=== PATIENT | female | born 1990 | race Caucasian/White ===

== ENCOUNTER 2016-05-05 18:23 | Emergency (ER) | payer BC, OTHER ==
[~2016-05-05] VITALS: Ht 167.6 cm; Wt 117.9 kg
[~2016-05-05 18:23] MED LIST: AMOXIL500 MG PO; ANAPROX DS550 MG PO; ANTIBIOTIC O500 U/GM TP; ATARAX,VISTARIL50 MG PO; ATARAX25 MG PO; AUGMENTIN 875 M1 TAB PO; CARVEDILOL3.125 MG PO; CELEBREX200 MG PO; CELEXA10 MG PO; CELEXA20 MG PO; CLARITIN10 MG PO; CLINDAMYCIN HC300 MG PO; CORDROL20 MG PO; DARVOCET N 1001 TAB PO; DELTASONE20 M1 PO; DIFLUCAN150 MG PO; DONNATAL1 TAB PO; Diabeta,Micron2.5 MG PO; EPIPEN 2-PAK1 MG/ML MR; FLUCONAZOLE100 MG PO; Fioricet 325 MG1 TAB PO; HYDROCHLOROTHIA25 M1 PO; HYDROCODONE BIT1 T11 PO; IBU-6600 MG PO; IBU-8800 MG PO; KEFLEX500 MG PO; KETOROLAC10 MG PO; MEDROL DOSEPAK4 MG PO; METFORMIN HCL500 MG PO; MIDRIN (DURADR1 CAP PO; MOTRIN400 MG PO; MOTRIN800 MG PO; Motrin,Rufen400 MG PO; Motrin,Rufen800 MG PO; NAPROSYN500 MG PO; NKHM PO; Orphenadrine C100 MG PO; PHENERGAN W/DM120 ML PO; PHENERGAN25 M1 PO; PREDNICOT20 MG PO; PROAIR HFA0.09 MG/AC IH; PROVENTIL0.09 MG/A1 INH; PROVENTIL0.09 MG/AC IH; TESSALON PERLE200 MG PO; ULTRAM50 MG PO; VENTOLIN 02.5 MG/3 M INH; ZITHROMAX Z PA250 MG PO; ZITHROMAX250 MG PO
[2016-05-05] MEDS ORDERED: ROBAXIN-750750 MG PO (19:04)
[2016-05-05] MEDS ORDERED: NORVASC5 MG PO (19:04)
[2016-05-05 19:05] VITALS: BP 151/101
[2016-05-05 22:02] LABS: BILIRUBIN NEGATIVE (NEGATIVE); BLOOD NEGATIVE (NEGATIVE); CLARITY SL CLOUDY (CLEAR); COLOR YELLOW (YELLOW); GLUCOSE 3+ (NEGATIVE); KETONE TRACE (NEGATIVE); LEUKO ESTERASE NEGATIVE (NEGATIVE); NITRITE NEGATIVE (NEGATIVE); PROTEIN NEGATIVE (NEGATIVE)
[2016-05-05 22:31] LABS: BACTERIA 4+; EPITHELIAL CELLS 15-20; RBC 0-2 rbc/hpf (0-2); URINE REFLEX COMMENT YES (NO); YEAST 1+
[2016-05-05] MEDS ORDERED: Diabeta,Micron2.5 MG PO (22:59)
[2016-05-05] MEDS ORDERED: CIPRO250 MG PO (23:23)
[2016-06-24] MEDS ORDERED: AUGMENTIN 875-875 MG PO (16:09)
== END 2016-05-05 23:58 | disposition home or self-care (01) ==
LOC: ED 18:23
PROVIDERS: Student in an Organized Health Care Education/Training Program
DX: B37.9 Candidiasis, unspecified (principal); E11.9 Type 2 diabetes mellitus without complications; N39.0 Urinary tract infection, site not specified; G43.909 Migraine, unspecified, not intractable, without status migrainosus; Z90.49 Acquired absence of other specified parts of digestive tract; Z88.1 Allergy status to other antibiotic agents; Z88.2 Allergy status to sulfonamides; Z91.010 Allergy to peanuts; Z91.018 Allergy to other foods

== ENCOUNTER 2016-07-12 12:32 | Emergency (ER) | payer BC, OTHER ==
[~2016-07-12] VITALS: Ht 167.6 cm; Wt 119.3 kg
[~2016-07-12 12:32] MED LIST changes: +AUGMENTIN 875-875 MG PO; +CIPRO250 MG PO; +NORVASC5 MG PO; +ROBAXIN-750750 MG PO
[2016-07-12 12:40] VITALS: BP 134/78
[2016-07-12] MEDS ORDERED: METFORMIN1000 MG PO (12:58)
[2016-07-12] MEDS ORDERED: HYDROCHLOROTHIA25 M1 PO (12:59)
[2016-07-12] MEDS ORDERED: CITALOPRAM20 MG PO (13:00)
[2016-07-12 13:55] LABS: BASO % 0.4 % (0.0-1.0); EOS # 0.2 10*3/uL (0.0-0.4); EOS % 2.7 % (1.0-4.0); HEMATOCRIT 39.8 % (37.0-47.0); HEMOGLOBIN 13.9 g/dl (12.0-16.0); IG # 0.1 10*3/uL (0.0-0.1); LYMPH # 2.2 10*3/uL (1.3-4.4); LYMPH % 26.8 % (27.0-41.0); MEAN CELL VOLUME 76.1 fl (81.0-99.0); MEAN CORPUSCULAR HGB 26.6 pg (27.0-31.0); MEAN CORPUSCULAR HGB CONC 34.9 g/dl (33.0-37.0); MEAN PLATELET VOLUME 10.2 fl (9.6-12.3); MONO # 0.6 10*3/uL (0.1-1.0); MONO % 7.9 % (3.0-9.0); NEUT % 61.2 % (47.0-73.0); PLATELET COUNT AUTOMATED 238 10*3/uL (130-400); RED BLOOD COUNT 5.23 10*6/uL (4.10-5.10); RED CELL DISTRI WIDTH 12.9 % (0-14.5); WHITE BLOOD COUNT 8.1 10*3/uL (4.8-10.8)
[2016-07-12 14:11] LABS: ALBUMIN 4.1 gm/dl (3.1-4.5); ALKALINE PHOSPHATASE 108 U/L (45-117); BILIRUBIN, TOTAL 0.4 mg/dl (0.2-1.0); BUN 10 mg/dl (7-24); C-REACTIVE PROTEIN 2.05 MG/DL (0-0.3); CARBON DIOXIDE 23 mmol/L (21-32); CHLORIDE 104 mmol/L (98-107); EST GLOM FILT AFRICAN AMERICAN > 60 ml/min; GLUCOSE 221 mg/dL (65-99); MAGNESIUM 1.8 mg/dL (1.5-2.1); POTASSIUM 3.4 mmol/L (3.5-5.1); SGOT/AST 74 IU/L (3-35); SGPT/ALT 206 U/L (12-78); SODIUM 139 mmol/L (136-145); TOTAL PROTEIN 8.3 gm/dL (6.4-8.2)
[2016-07-12 15:02] LABS: BILIRUBIN NEGATIVE (NEGATIVE); BLOOD TRACE-INTACT (NEGATIVE); CLARITY SL CLOUDY (CLEAR); COLOR YELLOW (YELLOW); GLUCOSE TRACE (NEGATIVE); KETONE NEGATIVE (NEGATIVE); LEUKO ESTERASE NEGATIVE (NEGATIVE); NITRITE NEGATIVE (NEGATIVE); PROTEIN 1+ (NEGATIVE); SPECIFIC GRAVITY 1.025 (1.005-1.030); UROBILINOGEN 0.2 E.U./dl (0.2-1.0)
[2016-07-12 15:08] LABS: BACTERIA 3+; RBC 0-2 rbc/hpf (0-2); URINE REFLEX COMMENT YES (NO)
[2016-07-12 15:09] LABS: MUCOUS TRACE
[2016-07-12] MEDS ORDERED: ZOFRAN4 MG PO (15:32)
[2016-07-12] MEDS ORDERED: MECLIZINE HCL25 M2 PO (15:32)
== END 2016-07-12 15:36 | disposition home or self-care (01) ==
LOC: ED 12:32
PROVIDERS: Nurse Practitioner Family
DX: M54.10 Radiculopathy, site unspecified (principal); E11.9 Type 2 diabetes mellitus without complications; G43.909 Migraine, unspecified, not intractable, without status migrainosus; Z88.1 Allergy status to other antibiotic agents; Z91.010 Allergy to peanuts; Z91.018 Allergy to other foods; Z88.8 Allergy status to other drugs, medicaments and biological substances; Z79.899 Other long term (current) drug therapy

== ENCOUNTER 2016-07-21 14:34 | Emergency (ER) | payer BC, OTHER ==
[~2016-07-21] VITALS: Ht 167.6 cm; Wt 117.9 kg
[~2016-07-21 14:34] MED LIST changes: +CITALOPRAM20 MG PO; +MECLIZINE HCL25 M2 PO; +METFORMIN1000 MG PO; +ZOFRAN4 MG PO
[2016-07-21 14:49] VITALS: BP 146/96
[2016-07-21] MEDS ORDERED: VIBRAMYCIN100 MG PO (15:45)
[2016-07-21] MEDS ORDERED: TESSALON PERLE100 M1 PO (15:46)
[2016-07-21] MEDS ORDERED: HYCODAN/HYDROMET5 ML PO (15:46)
[2016-07-21] MEDS ORDERED: PREDNISONE10 MG PO (16:07)
== END 2016-07-21 16:14 | disposition home or self-care (01) ==
LOC: ED 14:34
DX: J45.909 Unspecified asthma, uncomplicated (principal); Z79.899 Other long term (current) drug therapy; Z88.3 Allergy status to other anti-infective agents; Z91.010 Allergy to peanuts; Z88.1 Allergy status to other antibiotic agents

== ENCOUNTER 2016-09-25 19:44 | Emergency (ER) | payer BC, OTHER ==
[~2016-09-25] VITALS: Ht 167.6 cm; Wt 108.9 kg
[~2016-09-25 19:44] MED LIST changes: +HYCODAN/HYDROMET5 ML PO; +PREDNISONE10 MG PO; +TESSALON PERLE100 M1 PO; +VIBRAMYCIN100 MG PO
[2016-09-25 20:00] VITALS: BP 156/99
[2016-09-25] MEDS ORDERED: ZOFRAN4 MG PO (20:07)
[2016-09-25] MEDS ORDERED: NAPROSYN500 MG PO (20:07)
[2016-09-25] MEDS ORDERED: CLINDAMYCIN150 MG PO (20:07)
== END 2016-09-25 20:15 | disposition home or self-care (01) ==
LOC: ED 19:44
DX: L03.116 Cellulitis of left lower limb (principal); R03.0 Elevated blood-pressure reading, without diagnosis of hypertension; E11.9 Type 2 diabetes mellitus without complications; G43.909 Migraine, unspecified, not intractable, without status migrainosus; Z88.8 Allergy status to other drugs, medicaments and biological substances; Z88.1 Allergy status to other antibiotic agents; Z91.010 Allergy to peanuts; Z91.018 Allergy to other foods; Z79.899 Other long term (current) drug therapy

== ENCOUNTER 2016-10-13 17:00 | Emergency (ER) | payer OTHER ==
[~2016-10-13] VITALS: Ht 167.6 cm; Wt 113.4 kg
[~2016-10-13 17:00] MED LIST changes: +CLINDAMYCIN150 MG PO
[2016-10-13 17:05] VITALS: BP 142/60
[2016-10-13 17:38] LABS: BASO % 0.3 % (0.0-1.0); EOS # 0.1 10*3/uL (0.0-0.4); EOS % 1.5 % (1.0-4.0); HEMATOCRIT 38.5 % (37.0-47.0); HEMOGLOBIN 13.2 g/dl (12.0-16.0); LYMPH # 2.5 10*3/uL (1.3-4.4); LYMPH % 28.7 % (27.0-41.0); MEAN CELL VOLUME 79.7 fl (81.0-99.0); MEAN CORPUSCULAR HGB 27.3 pg (27.0-31.0); MEAN CORPUSCULAR HGB CONC 34.3 g/dl (33.0-37.0); MEAN PLATELET VOLUME 10.8 fl (9.6-12.3); MONO # 0.6 10*3/uL (0.1-1.0); MONO % 6.3 % (3.0-9.0); NEUT # 5.5 10*3/uL (2.3-7.9); NEUT % 62.9 % (47.0-73.0); PLATELET COUNT AUTOMATED 228 10*3/uL (130-400); RED BLOOD COUNT 4.83 10*6/uL (4.10-5.10); RED CELL DISTRI WIDTH 12.8 % (0-14.5); WHITE BLOOD COUNT 8.8 10*3/uL (4.8-10.8)
[2016-10-13 17:54] LABS: ALBUMIN 3.7 gm/dl (3.1-4.5); ALKALINE PHOSPHATASE 109 U/L (45-117); BILIRUBIN, TOTAL 0.3 mg/dl (0.2-1.0); BUN 4 mg/dl (7-24); CARBON DIOXIDE 22 mmol/L (21-32); CHLORIDE 105 mmol/L (98-107); EST GLOM FILT AFRICAN AMERICAN > 60 ml/min; GLUCOSE 294 mg/dL (65-99); POTASSIUM 3.6 mmol/L (3.5-5.1); SGOT/AST 112 IU/L (3-35); SGPT/ALT 227 U/L (12-78); SODIUM 142 mmol/L (136-145); TOTAL PROTEIN 7.5 gm/dL (6.4-8.2)
[2016-10-13 18:16] LABS: BILIRUBIN NEGATIVE (NEGATIVE); BLOOD NEGATIVE (NEGATIVE); CLARITY SL CLOUDY (CLEAR); COLOR YELLOW (YELLOW); GLUCOSE 3+ (NEGATIVE); KETONE NEGATIVE (NEGATIVE); LEUKO ESTERASE NEGATIVE (NEGATIVE); NITRITE NEGATIVE (NEGATIVE); PROTEIN NEGATIVE (NEGATIVE); UROBILINOGEN 0.2 E.U./dl (0.2-1.0)
[2016-10-13 18:23] LABS: BACTERIA 2+; RBC 0-2 rbc/hpf (0-2); URINE REFLEX COMMENT YES (NO)
[2016-10-13 18:26] LABS: URINE AMPHETAMINES < 1000 (1000ng/ml); URINE BARBITURATES < 200 (200ng/ml); URINE COCAINE < 300 (300ng/ml)
== END 2016-10-13 18:51 | disposition home or self-care (01) ==
LOC: ED 17:00
PROVIDERS: Nurse Practitioner Family
DX: I10 Essential (primary) hypertension (principal); R51 Headache; E11.9 Type 2 diabetes mellitus without complications; Z88.1 Allergy status to other antibiotic agents; Z88.2 Allergy status to sulfonamides; Z91.010 Allergy to peanuts; Z91.018 Allergy to other foods; Z79.899 Other long term (current) drug therapy

== ENCOUNTER 2016-11-14 19:05 | Emergency (ER) | payer OTHER ==
[~2016-11-14] VITALS: Ht 167.6 cm; Wt 113.4 kg
[2016-11-14 19:10] VITALS: BP 156/93
[2016-11-14] MEDS ORDERED: Motrin,Rufen800 MG PO (20:54)
[2016-11-14] MEDS ORDERED: CYCLOBENZAPRINE10 MG PO (20:54)
== END 2016-11-14 20:58 | disposition home or self-care (01) ==
LOC: ED 19:05
DX: S09.90XA Unspecified injury of head, initial encounter (principal); M54.2 Cervicalgia; Z88.1 Allergy status to other antibiotic agents; Z88.8 Allergy status to other drugs, medicaments and biological substances; Z91.010 Allergy to peanuts; Z91.018 Allergy to other foods; Z79.899 Other long term (current) drug therapy; W22.8XXA Striking against or struck by other objects, initial encounter; Y93.89 Activity, other specified; Y92.89 Other specified places as the place of occurrence of the external cause; Y99.8 Other external cause status

== ENCOUNTER 2016-12-23 12:57 | Emergency (ER) | payer OTHER ==
[~2016-12-23] VITALS: Ht 167.6 cm; Wt 113.4 kg
[~2016-12-23 12:57] MED LIST changes: +CYCLOBENZAPRINE10 MG PO
[2016-12-23 13:19] VITALS: BP 177/91
== END 2016-12-23 14:25 | disposition left against medical advice (07) ==
LOC: ED 12:57
DX: Z53.21 Procedure and treatment not carried out due to patient leaving prior to being seen by health care provider (principal); J45.909 Unspecified asthma, uncomplicated; E11.9 Type 2 diabetes mellitus without complications; G43.909 Migraine, unspecified, not intractable, without status migrainosus; Z79.899 Other long term (current) drug therapy; Z88.1 Allergy status to other antibiotic agents; Z88.8 Allergy status to other drugs, medicaments and biological substances; Z91.010 Allergy to peanuts

== ENCOUNTER 2017-01-01 09:52 | Emergency (ER) | payer OTHER ==
[~2017-01-01] VITALS: Ht 167.6 cm; Wt 116.1 kg
[2017-01-01 09:59] VITALS: BP 153/97
[2017-01-01] MEDS ORDERED: METOPROLOL TART50 M1 PO (10:05)
[2017-01-01] MEDS ORDERED: FLUCONAZOLE150 MG PO (10:06)
[2017-01-01] MEDS ORDERED: CYCLOBENZAPRINE10 MG PO (11:45)
[2017-01-01] MEDS ORDERED: KETOROLAC10 MG PO (11:45)
== END 2017-01-01 12:06 | disposition home or self-care (01) ==
LOC: ED 09:52
DX: G89.29 Other chronic pain (principal); M54.5 Low back pain; M25.512 Pain in left shoulder; I10 Essential (primary) hypertension; E11.9 Type 2 diabetes mellitus without complications; Z90.49 Acquired absence of other specified parts of digestive tract; G43.909 Migraine, unspecified, not intractable, without status migrainosus; Z88.1 Allergy status to other antibiotic agents; Z88.2 Allergy status to sulfonamides; Z91.010 Allergy to peanuts; Z91.018 Allergy to other foods

== ENCOUNTER 2017-01-27 15:46 | Emergency (ER) | payer OTHER ==
[~2017-01-27] VITALS: Ht 322.5 cm; Wt 115.2 kg
[~2017-01-27 15:46] MED LIST changes: +FLUCONAZOLE150 MG PO; +METOPROLOL TART50 M1 PO
[2017-01-27 16:15] LABS: BILIRUBIN NEGATIVE (NEGATIVE); BLOOD 3+ (NEGATIVE); CLARITY SL CLOUDY (CLEAR); COLOR YELLOW (YELLOW); GLUCOSE 3+ (NEGATIVE); KETONE NEGATIVE (NEGATIVE); LEUKO ESTERASE NEGATIVE (NEGATIVE); NITRITE NEGATIVE (NEGATIVE); PH 5.5 (5.0-9.0); SPECIFIC GRAVITY 1.015 (1.005-1.030); UROBILINOGEN 0.2 E.U./dl (0.2-1.0)
[2017-01-27 16:26] LABS: BACTERIA TRACE; EPITHELIAL CELLS 21-30; RBC 41-50 rbc/hpf (0-2)
[2017-01-27 16:35] LABS: BASO % 0.3 % (0.0-1.0); EOS # 0.2 10*3/uL (0.0-0.4); EOS % 1.7 % (1.0-4.0); HEMATOCRIT 37.8 % (37.0-47.0); HEMOGLOBIN 13.4 g/dl (12.0-16.0); LYMPH # 2.4 10*3/uL (1.3-4.4); LYMPH % 25.5 % (27.0-41.0); MEAN CELL VOLUME 78.9 fl (81.0-99.0); MEAN CORPUSCULAR HGB CONC 35.4 g/dl (33.0-37.0); MEAN PLATELET VOLUME 10.5 fl (9.6-12.3); MONO # 0.7 10*3/uL (0.1-1.0); MONO % 6.8 % (3.0-9.0); NEUT # 6.3 10*3/uL (2.3-7.9); NEUT % 65.4 % (47.0-73.0); PLATELET COUNT AUTOMATED 232 10*3/uL (130-400); RED BLOOD COUNT 4.79 10*6/uL (4.10-5.10); RED CELL DISTRI WIDTH 12.8 % (0-14.5); WHITE BLOOD COUNT 9.6 10*3/uL (4.8-10.8)
[2017-01-27 16:35] LABS: URINE AMPHETAMINES < 1000 (1000ng/ml); URINE BARBITURATES < 200 (200ng/ml); URINE BENZODIAZEPINES < 200 (200ng/ml); URINE CANNABINOIDS (THC) < 50 (50ng/ml); URINE COCAINE < 300 (300ng/ml); URINE METHADONE < 300 (300ng/ml); URINE OPIATES < 300 (300ng/ml); URINE PHENCYCLIDINE < 25 (25ng/ml)
[2017-01-27 16:45] LABS: ACT PARTIAL THROMBO TIME 23.1 SECONDS (20.8-31.5); INTERNATIONAL NORM RATIO 0.9 (2.0-3.5)
[2017-01-27 16:51] LABS: ALBUMIN 3.7 gm/dl (3.1-4.5); BUN 9 mg/dl (7-24); CHLORIDE 103 mmol/L (98-107); POTASSIUM 3.8 mmol/L (3.5-5.1); SGOT/AST 92 IU/L (3-35); SGPT/ALT 158 U/L (12-78); SODIUM 137 mmol/L (136-145); TOTAL PROTEIN 8.1 gm/dL (6.4-8.2)
[2017-01-27 16:59] LABS: ALKALINE PHOSPHATASE 114 U/L (45-117)
[2017-01-27 17:54] VITALS: BP 108/80
== END 2017-01-27 21:08 | disposition home or self-care (01) ==
LOC: ED 15:46
PROVIDERS: Nurse Practitioner Family
DX: R73.9 Hyperglycemia, unspecified (principal); I10 Essential (primary) hypertension; E11.9 Type 2 diabetes mellitus without complications; Z91.010 Allergy to peanuts; Z88.1 Allergy status to other antibiotic agents; Z88.8 Allergy status to other drugs, medicaments and biological substances; Z91.018 Allergy to other foods; Z79.899 Other long term (current) drug therapy

== ENCOUNTER 2017-02-06 01:59 | Emergency (ER) | payer OTHER ==
[~2017-02-06] VITALS: Ht 167.6 cm; Wt 114.3 kg
[2017-02-06 03:11] LABS: BASO % 0.4 % (0.0-1.0); EOS # 0.1 10*3/uL (0.0-0.4); EOS % 1.2 % (1.0-4.0); HEMATOCRIT 38.6 % (37.0-47.0); HEMOGLOBIN 13.5 g/dl (12.0-16.0); LYMPH # 3.4 10*3/uL (1.3-4.4); LYMPH % 34.5 % (27.0-41.0); MEAN CELL VOLUME 80.9 fl (81.0-99.0); MEAN CORPUSCULAR HGB 28.3 pg (27.0-31.0); MEAN PLATELET VOLUME 10.4 fl (9.6-12.3); MONO # 0.7 10*3/uL (0.1-1.0); NEUT # 5.6 10*3/uL (2.3-7.9); NEUT % 56.6 % (47.0-73.0); PLATELET COUNT AUTOMATED 244 10*3/uL (130-400); RED BLOOD COUNT 4.77 10*6/uL (4.10-5.10); RED CELL DISTRI WIDTH 12.7 % (0-14.5); WHITE BLOOD COUNT 9.9 10*3/uL (4.8-10.8)
[2017-02-06 03:32] LABS: BUN 14 mg/dl (7-24); CHLORIDE 98 mmol/L (98-107); CREATININE 0.73 mg/dL (0.55-1.02); POTASSIUM 3.5 mmol/L (3.5-5.1); SODIUM 132 mmol/L (136-145)
[2017-02-06 03:36] LABS: TROPONIN I < 0.015 ng/ml (<0.045)
[2017-02-06 03:49] LABS: BILIRUBIN NEGATIVE (NEGATIVE); BLOOD NEGATIVE (NEGATIVE); CLARITY CLOUDY (CLEAR); COLOR YELLOW (YELLOW); GLUCOSE 2+ (NEGATIVE); KETONE NEGATIVE (NEGATIVE); LEUKO ESTERASE NEGATIVE (NEGATIVE); NITRITE NEGATIVE (NEGATIVE); SPECIFIC GRAVITY 1.025 (1.005-1.030)
[2017-02-06 03:59] LABS: BACTERIA 3+; EPITHELIAL CELLS 30-35; URINE AMPHETAMINES < 1000 (1000ng/ml); URINE BARBITURATES < 200 (200ng/ml); URINE BENZODIAZEPINES < 200 (200ng/ml); URINE CANNABINOIDS (THC) < 50 (50ng/ml); URINE COCAINE < 300 (300ng/ml); URINE METHADONE < 300 (300ng/ml); URINE OPIATES < 300 (300ng/ml)
[2017-02-06 04:02] LABS: URINE PHENCYCLIDINE < 25 (25ng/ml)
[2017-02-06 04:28] VITALS: BP 134/72
[2017-02-06] MEDS ORDERED: ZOFRAN ODT4 MG SL (04:57)
[2017-02-06] MEDS ORDERED: KETOROLAC10 MG PO (04:57)
[2017-02-06] MEDS ORDERED: MACROBID100 M1 PO (04:57)
== END 2017-02-06 05:24 | disposition home or self-care (01) ==
LOC: ED 01:59
PROVIDERS: Emergency Medicine Emergency Medical Services
DX: G43.909 Migraine, unspecified, not intractable, without status migrainosus (principal); R82.71 Bacteriuria; G89.29 Other chronic pain; E11.65 Type 2 diabetes mellitus with hyperglycemia; I10 Essential (primary) hypertension; Z79.899 Other long term (current) drug therapy; Z88.8 Allergy status to other drugs, medicaments and biological substances; Z88.1 Allergy status to other antibiotic agents; Z91.010 Allergy to peanuts

== ENCOUNTER 2017-02-25 01:44 | Inpatient (IN) | payer OTHER ==
[2017-02-25] VITALS (7 sets, daily range): BP systolic 120–183; BP diastolic 68–123
[~2017-02-25] VITALS: Ht 167.6 cm; Wt 115.4 kg
--- NOTE | ~2017-02-25 | EKG ---
[place], [place] ELECTROCARDIOGRAM REPORT NAME: AMY BRADFORD UNIT #: [id number] ROOM: [facility] DOCTOR: KERRY WOOD,RAINER BIRTHDATE: [birth year] DOS: 02/25/2017 TIME: 5:02 a.m. IMPRESSION: 1. Sinus rhythm. 2. Non-specific ST-T changes. 3. Normal QT interval. RAINER PAYNE MD CM:EKGRPT:ELECTROCARDIOGRAM REPORT 1014 1237 RAINER PAYNE MD
--- NOTE | ~2017-02-25 | EKG ---
[place], [place] ELECTROCARDIOGRAM REPORT NAME: AMY BRADFORD UNIT #: [id number] ROOM: [facility] DOCTOR: KERRY WOOD,RAINER BIRTHDATE: [birth year] DOS: 02/25/2017 TIME: 07:28 a.m. IMPRESSION: 1. Sinus rhythm. 2. Nonspecific ST-T wave changes. 3. Normal QT interval. RAINER PAYNE MD CM:EKGRPT:ELECTROCARDIOGRAM REPORT 1010 1230 RAINER PAYNE MD
--- NOTE | ~2017-02-25 | CON ---
[place], [place] REPORT OF CONSULTATION NAME: AMY BRADFORD UNIT #: [id number] ROOM: 502 DOCTOR: RAINER PAYNE MD BIRTHDATE: [birth year] DOS: 02/25/2017 REASON FOR CONSULTATION: Chest pain. HISTORY OF PRESENT ILLNESS: The patient is a 26-year-old patient with history of hypertension, diabetes, obesity, came to the Emergency Room with "chest pain." She is having chest pain for the past 3 months in the midsternal left sternal area, mostly at rest, lasts for only few seconds, sharp pain, no radiation, no associated symptoms. She was told that what she chest pain is "some skipping heartbeats." She denied any palpitations, dizziness or syncope. She was seen by senior workforce development specialist, Dr. Hart, about a week ago. She has recent stress test. She had a 2D echo a few years ago. Again, her chest pains are intermittent for the past 3 months, but last night, she woke up from sleep with this pain which is sharp in nature, but last night, it did radiate to her left arm, no associated symptoms. She also has some numbness, sometime headaches when her blood pressure goes up. She presented to the Emergency Room and subsequently admitted to the hospital and Cardiology consult for further evaluation of chest pains. Currently, she denies any chest pain or shortness of breath, no palpitations, no dizziness, no edema, no PND, no orthopnea, no nausea or vomiting, no hemoptysis, no fever or chills. REVIEW OF SYSTEMS: Review of the 8 systems negative except as mentioned above. PAST MEDICAL HISTORY: 1. Hypertension. 2. Morbid obesity. 3. Diabetes type 2. 4. Chronic back pains. 5. Chronic neck pain. 6. Migraine headaches. SURGICAL HISTORY: History of cholecystectomy and foot surgery. FAMILY HISTORY: Father and mother have coronary artery disease. Father at the age of 52. Mother is living, age 55. ALLERGIES: THE PATIENT IS ALLERGIC TO NUTS AND CYMBALTA. HOME MEDICATIONS: Reviewed. SOCIAL HISTORY: The patient does not smoke or drink or use any illicit drugs. PHYSICAL EXAMINATION: VITAL SIGNS: Reviewed. Blood pressure 120/68, pulse 68, respiration 18. GENERAL: Alert, comfortable, in no acute distress. HEAD AND NECK: Pupils are round and equal. No jaundice. Tongue was moist and pharynx was clear. NECK: Supple, no distended neck veins, no carotid bruit. Thyroid not palpable. CHEST: Nontender. LUNGS: Clear to auscultation bilaterally. [place], [place] REPORT OF CONSULTATION NAME: AMY BRADFORD UNIT #: [id number] ROOM: [facility] DOCTOR: KERRY WOOD,RAINER BIRTHDATE: [birth year] HEART: Regular rhythm, no S3, no palpable thrills. ABDOMEN: Obese, nontender. Bowel sounds normal. Unable to palpate the aorta. SKIN: Warm and dry. No cyanosis, no clubbing. RECTAL: Deferred. GENITOURINARY: Deferred. REVIEW OF THE DIAGNOSTIC TESTS: EKG shows sinus rhythm, no ischemic changes. Her labs reviewed. IMPRESSION: 1. Chest pain, atypical. 2. Hypertension, currently uncontrolled. 3. Diabetes type 2. 4. Morbid obesity. Diet, exercise, weight loss discussed. 5. Elevated alkaline phosphatase. RECOMMENDATIONS: 1. No further cardiac testing at this time. I would recommend Lexiscan stress test, which can be done as an outpatient. She preferred to get it done with her workforce development specialist, Dr. Hart, in [place]. 2. No further cardiac testing and she can be discharged home from the cardiac standpoint. 3. The above treatment plan discussed with the patient and her mom who is at bedside and all questions answered. RAINER PAYNE MD CM:CONSTR:REPORT OF CONSULTATION 1541 02/26/17 0204 interface
--- NOTE | ~2017-02-25 | EKG ---
[place], [place] ELECTROCARDIOGRAM REPORT NAME: AMY BRADFORD UNIT #: [id number] ROOM: [facility] DOCTOR: KERRY WOOD,RAINER BIRTHDATE: [birth year] DOS: 02/25/2017 TIME: 1:57 a.m. IMPRESSION: 1. Sinus rhythm. 2. Non-specific ST-T changes. 3. Baseline artifacts. RAINER PAYNE MD CM:EKGRPT:ELECTROCARDIOGRAM REPORT 1011 1234 RAINER PAYNE MD
[~2017-02-25 01:44] MED LIST changes: +MACROBID100 M1 PO; +ZOFRAN ODT4 MG SL
[2017-02-25 02:05] LABS: BASO % 0.3 % (0.0-1.0); EOS # 0.2 10*3/uL (0.0-0.4); HEMATOCRIT 38.1 % (37.0-47.0); HEMOGLOBIN 13.4 g/dl (12.0-16.0); LYMPH # 3.7 10*3/uL (1.3-4.4); LYMPH % 34.2 % (27.0-41.0); MEAN CELL VOLUME 78.9 fl (81.0-99.0); MEAN CORPUSCULAR HGB 27.7 pg (27.0-31.0); MEAN CORPUSCULAR HGB CONC 35.2 g/dl (33.0-37.0); MEAN PLATELET VOLUME 10.6 fl (9.6-12.3); MONO # 0.7 10*3/uL (0.1-1.0); MONO % 6.8 % (3.0-9.0); NEUT # 6.2 10*3/uL (2.3-7.9); NEUT % 56.3 % (47.0-73.0); PLATELET COUNT AUTOMATED 242 10*3/uL (130-400); RED BLOOD COUNT 4.83 10*6/uL (4.10-5.10); RED CELL DISTRI WIDTH 12.9 % (0-14.5); WHITE BLOOD COUNT 10.9 10*3/uL (4.8-10.8)
[2017-02-25 02:36] LABS: ACT PARTIAL THROMBO TIME 24.5 SECONDS (20.8-31.5); INTERNATIONAL NORM RATIO 0.9 (2.0-3.5)
[2017-02-25 02:43] LABS: ALBUMIN 3.8 gm/dl (3.1-4.5); ALKALINE PHOSPHATASE 123 U/L (45-117); BUN 10 mg/dl (7-24); CHLORIDE 102 mmol/L (98-107); CREATININE 0.87 mg/dL (0.55-1.02); POTASSIUM 3.9 mmol/L (3.5-5.1); SGOT/AST 34 IU/L (3-35); SGPT/ALT 106 U/L (12-78); SODIUM 137 mmol/L (136-145); TOTAL PROTEIN 8.1 gm/dL (6.4-8.2)
[2017-02-25 02:44] LABS: TROPONIN I < 0.015 ng/ml (<0.045)
--- NOTE | 2017-02-25 03:23 | NUR ---
PT DENIES SOB OR "CHEST PAIN AT PRESENT" NOW JUST A "DULL ACHE"
--- NOTE | 2017-02-25 03:40 | NUR ---
A 26, admitted to , under the services of KRISHAN Alejandre DO with a diagnosis of CHEST PAIN. Chief complaint is LT SIDED CHEST PAIN. Patient arrived via stretcher from ER. Monitor applied. Initial assessment completed. Vital signs taken and recorded. KRISHAN ALEJANDRE DO notified of admission to the unit. Orders received. See assessment for past medical history, medications and allergies. Patient and/or family oriented to unit. [facility] visitation policy reviewed. Clothing/patient valuable form completed. [employer]
[2017-02-25] MEDS ORDERED: LOPRESSOR100 M1 PO (04:24)
[2017-02-25] MEDS ORDERED: GLYBURIDE5 MG PO (04:28)
[2017-02-25] MEDS ORDERED: LISINOPRIL5 MG PO (04:29)
[2017-02-25 05:16] LABS: URINE AMPHETAMINES < 1000 (1000ng/ml); URINE BARBITURATES < 200 (200ng/ml); URINE BENZODIAZEPINES < 200 (200ng/ml); URINE CANNABINOIDS (THC) < 50 (50ng/ml); URINE COCAINE < 300 (300ng/ml); URINE METHADONE < 300 (300ng/ml); URINE OPIATES < 300 (300ng/ml)
[2017-02-25 05:24] LABS: URINE PHENCYCLIDINE < 25 (25ng/ml)
[2017-02-25 05:45] LABS: FREE T4 1.02 ng/dl (0.76-1.46)
[2017-02-25 05:52] LABS: THYROID STIM HORMONE (HS) 2.35 uIU/ml (0.358-4.75)
--- NOTE | 2017-02-25 05:55 | NUR ---
MESSAGE LEFT WITH ANSWERING SERVICE REGARDING CONSULT ORDER FOR .
--- NOTE | 2017-02-25 06:17 | NUR ---
PATIENT MEDICATED WITHN TORDOL PER PRN ORDER FOR C/O CHEST PAIN AND HEADACHE. RATED PAIN A 7/10 WITH 10 BEING THE WORST. SEE EMAR. REINFORCED USE OF CALL LIGHT.
--- NOTE | 2017-02-25 07:15 | NUR ---
DR. PAYNE NOTIFIED OF CONSULT PER ORDER. WILL SEE PATIENT THIS AM.
--- NOTE | 2017-02-25 08:00 | NUR ---
PT SITTING UP EATING BREAKFAST. NO DISTRESS NOTED. PT DENIES ANY CHEST PAIN AT THIS TIME. WILL MONITOR
--- NOTE | 2017-02-25 10:22 | NUR ---
DR DAWSON HERE TO SEE PT
--- NOTE | 2017-02-25 12:30 | NUR ---
Discharge instructions reviewed with patient/family. Patient receptive and verbalizes understanding. Follow-up care arranged. Written instructions given to patient/family. JOHN ALBERTO
[2017-02-26 16:05] LABS: HEPATITIS B SURFACE AG Negative (Negative); HEPATITIS C VIRUS ANTIBODY <0.1 s/co (0.0-0.9)
== END 2017-02-25 12:30 | disposition home or self-care (01) | DRG 313 ==
LOC: ED 01:44 → 5E 03:16 → EDHOLD 03:16 → 5E 03:22
PROVIDERS: Emergency Medicine; Internal Medicine; ADMIT Internal Medicine
DX: R07.89 Other chest pain (principal); E11.42 Type 2 diabetes mellitus with diabetic polyneuropathy; I16.1 Hypertensive emergency; Z68.41 Body mass index [BMI] 40.0-44.9, adult; E66.01 Morbid (severe) obesity due to excess calories; E11.65 Type 2 diabetes mellitus with hyperglycemia; G43.909 Migraine, unspecified, not intractable, without status migrainosus; I10 Essential (primary) hypertension; F32.9 Major depressive disorder, single episode, unspecified; G89.29 Other chronic pain; M54.2 Cervicalgia; J45.909 Unspecified asthma, uncomplicated; R71.8 Other abnormality of red blood cells; M25.511 Pain in right shoulder; M25.512 Pain in left shoulder; Z88.2 Allergy status to sulfonamides; R74.0 Nonspecific elevation of levels of transaminase and lactic acid dehydrogenase [LDH]; Z88.8 Allergy status to other drugs, medicaments and biological substances; Z91.018 Allergy to other foods; Z87.440 Personal history of urinary (tract) infections; Z91.010 Allergy to peanuts; Z90.49 Acquired absence of other specified parts of digestive tract; Z82.49 Family history of ischemic heart disease and other diseases of the circulatory system; Z79.84 Long term (current) use of oral hypoglycemic drugs; Z79.899 Other long term (current) drug therapy

== ENCOUNTER 2017-03-12 06:37 | Emergency (ER) | payer OTHER ==
[~2017-03-12] VITALS: Ht 167.6 cm; Wt 115.7 kg
[~2017-03-12 06:37] MED LIST changes: +GLYBURIDE5 MG PO; +LISINOPRIL5 MG PO; +LOPRESSOR100 M1 PO
[2017-03-12 06:47] VITALS: BP 150/84
[2017-03-12] MEDS ORDERED: NAPROSYN500 MG PO (06:56)
[2017-03-12] MEDS ORDERED: CYCLOBENZAPRINE10 MG PO (06:56)
== END 2017-03-12 07:30 | disposition home or self-care (01) ==
LOC: ED 06:37
DX: M54.9 Dorsalgia, unspecified (principal); R11.10 Vomiting, unspecified; E11.9 Type 2 diabetes mellitus without complications; I10 Essential (primary) hypertension; Z91.018 Allergy to other foods; Z88.1 Allergy status to other antibiotic agents; Z88.8 Allergy status to other drugs, medicaments and biological substances; Z79.899 Other long term (current) drug therapy

== ENCOUNTER 2017-04-13 22:01 | Emergency (ER) | payer OTHER ==
[~2017-04-13] VITALS: Ht 167.6 cm; Wt 116.1 kg
[2017-04-13 22:11] VITALS: BP 146/92
[2017-04-13 22:43] LABS: BASO % 0.6 % (0.0-1.0); EOS # 0.4 10*3/uL (0.0-0.4); EOS % 5.2 % (1.0-4.0); HEMATOCRIT 38.8 % (37.0-47.0); HEMOGLOBIN 13.3 g/dl (12.0-16.0); LYMPH # 2.1 10*3/uL (1.3-4.4); LYMPH % 29.1 % (27.0-41.0); MEAN CELL VOLUME 77.4 fl (81.0-99.0); MEAN CORPUSCULAR HGB 26.5 pg (27.0-31.0); MEAN CORPUSCULAR HGB CONC 34.3 g/dl (33.0-37.0); MEAN PLATELET VOLUME 10.6 fl (9.6-12.3); MONO # 0.7 10*3/uL (0.1-1.0); MONO % 9.6 % (3.0-9.0); NEUT # 3.9 10*3/uL (2.3-7.9); NEUT % 55.4 % (47.0-73.0); PLATELET COUNT AUTOMATED 184 10*3/uL (130-400); RED BLOOD COUNT 5.01 10*6/uL (4.10-5.10); RED CELL DISTRI WIDTH 12.7 % (0-14.5); WHITE BLOOD COUNT 7.1 10*3/uL (4.8-10.8)
[2017-04-13 22:59] LABS: ALBUMIN 3.6 gm/dl (3.1-4.5); ALKALINE PHOSPHATASE 101 U/L (45-117); BUN 7 mg/dl (7-24); CHLORIDE 99 mmol/L (98-107); CREATININE 0.91 mg/dL (0.55-1.02); LIPASE 122 U/L (73-393); POTASSIUM 3.5 mmol/L (3.5-5.1); SGOT/AST 48 IU/L (3-35); SGPT/ALT 103 U/L (12-78); SODIUM 134 mmol/L (136-145); TOTAL PROTEIN 7.8 gm/dL (6.4-8.2)
[2017-04-14] MEDS ORDERED: PROAIR HFA8.5 GM INH (00:29)
[2017-04-14] MEDS ORDERED: HYCODAN/HYDROMET5 ML PO (00:29)
[2017-04-14] MEDS ORDERED: ZOFRAN ODT4 MG SL (00:29)
== END 2017-04-14 01:24 | disposition home or self-care (01) ==
LOC: ED 22:01
PROVIDERS: Physician Assistant
DX: B34.9 Viral infection, unspecified (principal); J45.909 Unspecified asthma, uncomplicated; Z90.49 Acquired absence of other specified parts of digestive tract; Z98.890 Other specified postprocedural states; Z79.899 Other long term (current) drug therapy; Z88.1 Allergy status to other antibiotic agents; Z88.8 Allergy status to other drugs, medicaments and biological substances; Z91.010 Allergy to peanuts

== ENCOUNTER 2017-05-19 13:27 | Emergency (ER) | payer OTHER ==
[~2017-05-19] VITALS: Ht 167.6 cm; Wt 113.4 kg
[~2017-05-19 13:27] MED LIST changes: +PROAIR HFA8.5 GM INH
[2017-05-19 13:36] VITALS: BP 162/88
[2017-05-19 14:11] LABS: BASO % 0.2 % (0.0-1.0); EOS # 0.2 10*3/uL (0.0-0.4); EOS % 2.1 % (1.0-4.0); HEMATOCRIT 40.4 % (37.0-47.0); HEMOGLOBIN 13.6 g/dl (12.0-16.0); LYMPH # 2.6 10*3/uL (1.3-4.4); LYMPH % 30.8 % (27.0-41.0); MEAN CELL VOLUME 79.4 fl (81.0-99.0); MEAN CORPUSCULAR HGB 26.7 pg (27.0-31.0); MEAN CORPUSCULAR HGB CONC 33.7 g/dl (33.0-37.0); MEAN PLATELET VOLUME 10.7 fl (9.6-12.3); MONO # 0.5 10*3/uL (0.1-1.0); MONO % 6.4 % (3.0-9.0); NEUT % 60.3 % (47.0-73.0); PLATELET COUNT AUTOMATED 215 10*3/uL (130-400); RED BLOOD COUNT 5.09 10*6/uL (4.10-5.10); RED CELL DISTRI WIDTH 12.8 % (0-14.5); WHITE BLOOD COUNT 8.3 10*3/uL (4.8-10.8)
[2017-05-19 14:26] LABS: ALBUMIN 3.9 gm/dl (3.1-4.5); ALKALINE PHOSPHATASE 110 U/L (45-117); BUN 10 mg/dl (7-24); CHLORIDE 105 mmol/L (98-107); CREATININE 0.82 mg/dL (0.55-1.02); LIPASE 152 U/L (73-393); POTASSIUM 3.7 mmol/L (3.5-5.1); SGOT/AST 46 IU/L (3-35); SGPT/ALT 109 U/L (12-78); SODIUM 138 mmol/L (136-145); TOTAL PROTEIN 8.4 gm/dL (6.4-8.2)
[2017-05-19 14:29] LABS: BETA-HCG, QUANT < 1.0 mIU/mL (1-3)
[2017-05-19] MEDS ORDERED: PREDNISONE50 MG PO (15:45)
[2017-05-19] MEDS ORDERED: Motrin,Rufen800 MG PO (15:45)
== END 2017-05-19 15:52 | disposition home or self-care (01) ==
LOC: ED 13:27
PROVIDERS: Emergency Medicine
DX: L25.8 Unspecified contact dermatitis due to other agents (principal); R10.84 Generalized abdominal pain; F17.200 Nicotine dependence, unspecified, uncomplicated; G89.29 Other chronic pain; I10 Essential (primary) hypertension; E11.65 Type 2 diabetes mellitus with hyperglycemia; G43.909 Migraine, unspecified, not intractable, without status migrainosus; E66.01 Morbid (severe) obesity due to excess calories; Z90.49 Acquired absence of other specified parts of digestive tract; Z98.890 Other specified postprocedural states; Z79.899 Other long term (current) drug therapy; Z91.010 Allergy to peanuts; Z88.1 Allergy status to other antibiotic agents; Z88.8 Allergy status to other drugs, medicaments and biological substances

== ENCOUNTER 2017-09-02 16:30 | Emergency (ER) | payer OTHER ==
[~2017-09-02] VITALS: Ht 167.6 cm; Wt 113.4 kg
[~2017-09-02 16:30] MED LIST changes: +PREDNISONE50 MG PO
[2017-09-02 16:33] VITALS: BP 143/95
== END 2017-09-02 18:13 | disposition home or self-care (01) ==
LOC: ED 16:30
DX: R51 Headache (principal); G89.29 Other chronic pain; M54.5 Low back pain; M48.061 Spinal stenosis, lumbar region without neurogenic claudication; Z98.890 Other specified postprocedural states; Z90.49 Acquired absence of other specified parts of digestive tract; Z79.899 Other long term (current) drug therapy; Z88.1 Allergy status to other antibiotic agents; Z88.8 Allergy status to other drugs, medicaments and biological substances; Z91.010 Allergy to peanuts

== ENCOUNTER 2017-09-29 16:38 | Emergency (ER) | payer OTHER ==
[~2017-09-29] VITALS: Ht 167.6 cm; Wt 115.7 kg
[2017-09-29 17:52] LABS: BASO % 0.3 % (0.0-1.0); EOS # 0.4 10*3/uL (0.0-0.4); EOS % 3.8 % (1.0-4.0); HEMATOCRIT 40.8 % (37.0-47.0); HEMOGLOBIN 13.2 g/dl (12.0-16.0); LYMPH # 2.4 10*3/uL (1.3-4.4); LYMPH % 22.3 % (27.0-41.0); MEAN CELL VOLUME 80.6 fl (81.0-99.0); MEAN CORPUSCULAR HGB 26.1 pg (27.0-31.0); MEAN CORPUSCULAR HGB CONC 32.4 g/dl (33.0-37.0); MEAN PLATELET VOLUME 10.4 fl (9.6-12.3); MONO # 0.7 10*3/uL (0.1-1.0); MONO % 6.5 % (3.0-9.0); NEUT # 7.2 10*3/uL (2.3-7.9); NEUT % 66.9 % (47.0-73.0); PLATELET COUNT AUTOMATED 223 10*3/uL (130-400); RED BLOOD COUNT 5.06 10*6/uL (4.10-5.10); WHITE BLOOD COUNT 10.8 10*3/uL (4.8-10.8)
[2017-09-29 18:01] LABS: ACT PARTIAL THROMBO TIME 23.1 SECONDS (20.8-31.5); INTERNATIONAL NORM RATIO 0.9 (2.0-3.5)
[2017-09-29 18:08] LABS: ALBUMIN 3.9 gm/dl (3.1-4.5); ALKALINE PHOSPHATASE 98 U/L (45-117); BUN 12 mg/dl (7-24); CHLORIDE 104 mmol/L (98-107); CREATININE 0.85 mg/dL (0.55-1.02); LIPASE 101 U/L (73-393); POTASSIUM 3.4 mmol/L (3.5-5.1); SGOT/AST 49 IU/L (3-35); SGPT/ALT 127 U/L (12-78); SODIUM 139 mmol/L (136-145)
[2017-09-29 18:09] LABS: TROPONIN I < 0.015 ng/ml (<0.045)
[2017-09-29 18:26] LABS: BILIRUBIN NEGATIVE (NEGATIVE); BLOOD NEGATIVE (NEGATIVE); CLARITY CLEAR (CLEAR); COLOR YELLOW (YELLOW); GLUCOSE 2+ (NEGATIVE); KETONE TRACE (NEGATIVE); LEUKO ESTERASE NEGATIVE (NEGATIVE); NITRITE NEGATIVE (NEGATIVE); UROBILINOGEN 0.2 E.U./dl (0.2-1.0)
[2017-09-29 18:27] LABS: EPITHELIAL CELLS 15-20
[2017-09-29 18:34] VITALS: BP 126/84
== END 2017-09-29 18:41 | disposition home or self-care (01) ==
LOC: ED 16:38
PROVIDERS: Physician Assistant
DX: R42 Dizziness and giddiness (principal); Z88.2 Allergy status to sulfonamides; Z91.018 Allergy to other foods; Z88.8 Allergy status to other drugs, medicaments and biological substances; Z79.84 Long term (current) use of oral hypoglycemic drugs; Z79.899 Other long term (current) drug therapy; Z90.49 Acquired absence of other specified parts of digestive tract

== ENCOUNTER 2017-10-07 21:45 | Emergency (ER) | payer OTHER ==
[~2017-10-07] VITALS: Ht 167.6 cm; Wt 113.4 kg
[2017-10-07 22:28] LABS: BASO % 0.3 % (0.0-1.0); EOS # 0.3 10*3/uL (0.0-0.4); HEMATOCRIT 36.8 % (37.0-47.0); HEMOGLOBIN 12.4 g/dl (12.0-16.0); LYMPH % 15.6 % (27.0-41.0); MEAN CELL VOLUME 79.3 fl (81.0-99.0); MEAN CORPUSCULAR HGB 26.7 pg (27.0-31.0); MEAN CORPUSCULAR HGB CONC 33.7 g/dl (33.0-37.0); MEAN PLATELET VOLUME 10.5 fl (9.6-12.3); MONO % 8.3 % (3.0-9.0); NEUT # 9.2 10*3/uL (2.3-7.9); NEUT % 73.4 % (47.0-73.0); PLATELET COUNT AUTOMATED 204 10*3/uL (130-400); RED BLOOD COUNT 4.64 10*6/uL (4.10-5.10); WHITE BLOOD COUNT 12.5 10*3/uL (4.8-10.8)
[2017-10-07 22:46] LABS: ALBUMIN 3.7 gm/dl (3.1-4.5); ALKALINE PHOSPHATASE 83 U/L (45-117); BUN 11 mg/dl (7-24); CHLORIDE 106 mmol/L (98-107); CREATININE 0.99 mg/dL (0.55-1.02); POTASSIUM 3.4 mmol/L (3.5-5.1); SGOT/AST 24 IU/L (3-35); SGPT/ALT 82 U/L (12-78); SODIUM 137 mmol/L (136-145); TOTAL PROTEIN 7.6 gm/dL (6.4-8.2)
[2017-10-07 22:50] LABS: TROPONIN I < 0.015 ng/ml (<0.045)
[2017-10-08 00:36] VITALS: BP 119/65
== END 2017-10-08 01:05 | disposition home or self-care (01) ==
LOC: ED 21:45
PROVIDERS: Physician Assistant
DX: B34.9 Viral infection, unspecified (principal); R51 Headache; J45.909 Unspecified asthma, uncomplicated; I10 Essential (primary) hypertension; Z88.2 Allergy status to sulfonamides; Z91.018 Allergy to other foods; Z91.010 Allergy to peanuts; Z79.84 Long term (current) use of oral hypoglycemic drugs; Z79.899 Other long term (current) drug therapy; Z90.49 Acquired absence of other specified parts of digestive tract

== ENCOUNTER 2017-11-08 20:32 | Emergency (ER) | payer OTHER ==
[~2017-11-08] VITALS: Ht 167.6 cm; Wt 117.9 kg
[2017-11-08] MEDS ORDERED: PREDNISONE10 MG PO (22:31)
[2017-11-08 22:36] VITALS: BP 133/67
== END 2017-11-08 22:25 | disposition home or self-care (01) ==
LOC: ED 20:32
DX: G89.29 Other chronic pain (principal); M54.9 Dorsalgia, unspecified; R20.2 Paresthesia of skin; Z88.2 Allergy status to sulfonamides; Z91.018 Allergy to other foods; Z88.8 Allergy status to other drugs, medicaments and biological substances; Z79.899 Other long term (current) drug therapy; Z90.49 Acquired absence of other specified parts of digestive tract

== ENCOUNTER 2018-01-16 20:34 | Inpatient (IN) | payer OTHER ==
[~2018-01-16] VITALS: Ht 167.6 cm; Wt 115.9 kg
--- NOTE | ~2018-01-16 | EKG ---
[place], [place] ELECTROCARDIOGRAM REPORT NAME: AMY BRADFORD UNIT #: [id number] ROOM: 502 DOCTOR: SHADI DRAFT REPORT BIRTHDATE: [birth year] [facility] Test Date: 2018-01-16 Test Time: 20:48:09 Pat Name: AMY BRADFORD Department: Room: [facility] Gender: F Electrical Maintenance Engineer: Laverne Frias : 1990 Requested By: CHUY PACHECO Order Number: [id number] Reading MD: Shawn Valencia MD Measurements Intervals [place] Rate: 132 P: 50 FL: 142 QRS: 25 QRSD: 65 T: -54 QT: 327 QTc: 485 Interpretive Statements Sinus tachycardia Low voltage, precordial leads Borderline repolarization abnormality Baseline wander in lead(s) V2 Electronically Signed On 01-17-2018 10:43:46 PDT by Shawn Valencia MD CM:EKGRPT:ELECTROCARDIOGRAM REPORT [id number] CHUY MCKINNEY DRAFT REPORT CHUY PACHECO DO
--- NOTE | ~2018-01-16 | CON ---
[place], [place] REPORT OF CONSULTATION NAME: AMY BRADFORD UNIT #: [id number] ROOM: 502 DOCTOR: EVANS DIAZ MD BIRTHDATE: [birth year] DOS: 01/17/2018 REASON FOR CONSULTATION: Chest pain. HISTORY OF PRESENT ILLNESS: The patient is a 27-year-old woman who presented to the hospital yesterday with complaints of sharp chest pain. She states that she has had episodes of chest pain in the past and was evaluated at one time in the past, but no cause was found. She was hospitalized overnight for this, but states that she did not have a stress test. She has been evaluated for syncope and did have a tilt table study in the past. She is on beta blockers for presumed vasovagal syncope. Yesterday while making dinner, she had a sudden midsternal and left anterior chest pain associated with lightheadedness. This was a sharp pain that lasted 5 to 10 minutes and then resolved spontaneously. She did note that pressing on the sternum helped relieve the pain and taking deep breaths made it worse. The pain did not radiate and there was no associated nausea. She did state that the pains recurred and therefore she came to the Emergency Room. Since she has been in the Emergency Room, she has had no acute EKG changes. Cardiac troponin levels have been normal. PAST MEDICAL HISTORY: Includes: 1. Diabetes mellitus. 2. Morbid obesity. 3. Polycystic ovary syndrome. 4. Essential hypertension. 5. Diabetes mellitus without insulin. 6. Low back pain with lumbar spinal stenosis. 7. History of cholecystectomy. PAST SURGICAL HISTORY: Foot surgery and back surgery. MEDICATIONS: Prior to admission included albuterol 2 puffs q. 4 hours, amlodipine 5 mg daily, citalopram 20 mg at bedtime, cyclobenzaprine 10 mg at bedtime, fludrocortisone 0.2 mg daily, glyburide 5 mg twice a day, metformin 1000 mg twice a day, metoprolol 50 mg daily in the morning and 100 mg in the evening. ALLERGIES: She lists allergies to DULOXETINE, NUTS, PEANUTS, SULFAMETHOXAZOLE, TRIMETHOPRIM and WHEAT. FAMILY HISTORY: Positive for both parents having heart disease in their 50s. REVIEW OF SYSTEMS: The patient denies diplopia or loss of vision. She denies syncope, but has had lightheadedness. She denies nausea, vomiting, fevers, chills, sweats or recent weight change. She denies orthopnea or PND. She does have chronic fatigue and dyspnea. She did have the chest pain noted above. She does have occasional wheezing and cough, and states that she has recently had an upper respiratory illness with green sputum. She denies change in bowel or [place], [place] REPORT OF CONSULTATION NAME: AMY BRADFORD UNIT #: [id number] ROOM: [facility] DOCTOR: EVANS DIAZ MD BIRTHDATE: [birth year] bladder habits. Denies blood in her stools or urine. She denies any peripheral edema. She denies heat or cold intolerance. Denies any skin rashes. Remainder of the review of systems is negative except as noted above. SOCIAL HISTORY: The patient is and lives with her . She was a smoker, but quit several years ago. She does not consume alcohol. PHYSICAL EXAMINATION: GENERAL: The patient is an overweight white female who is awake, alert and oriented. VITAL SIGNS: Pulse is 89 and regular, blood pressure is 136/76. She is afebrile. She weighs 115.9 kg and has a body mass index of 41.3. HEENT: Normocephalic and atraumatic. Extraocular muscles are intact. Sclerae are clear. Pupils are equal, round and react to light. The oral mucosa is moist. Tongue is midline. NECK: Supple. She has no jugular distention. Carotids are full and I heard no bruits. She had no neck or supraclavicular masses, no thyromegaly. LUNGS: Respirations are unlabored. Her chest is clear to auscultation and percussion. She has no presacral edema. She does have some mild left anterior chest wall tenderness, which does not exactly reproduce her chest pain symptoms. CARDIOVASCULAR: She has no murmurs, rubs or gallops. The PMI is not displaced. There is no precordial heave, lift or thrill. ABDOMEN: Obese but otherwise benign without masses, organomegaly or bruits. EXTREMITIES: Showed no edema. Peripheral pulses are palpable in the feet. IMAGING: I reviewed her resting electrocardiogram, which showed sinus rhythm and was a normal tracing. IMPRESSION: 1. Atypical chest pain. Thus far, the patient shows no signs of acute coronary syndrome. 2. Probable neurocardiogenic syncope, managed with fludrocortisone and beta blockers. 3. Diabetes mellitus. The patient had early onset of type 2 diabetes mellitus and does not take insulin. 4. History of hypertension. PLAN: We will proceed with a pharmacologic stress test. If that is normal, then other causes for her chest pain such as musculoskeletal problems, etc. will need to be considered. I thank the hospitalist physicians for asking our advice regarding her care. [place], [place] REPORT OF CONSULTATION NAME: AMY BRADFORD UNIT #: [id number] ROOM: [facility] DOCTOR: EVANS DIAZ MD BIRTHDATE: [birth year] EVANS DIAZ MD CM:CONSTR:REPORT OF CONSULTATION 1553 01/18/18 0207 interface
--- NOTE | ~2018-01-16 | EKG ---
[place], [place] ELECTROCARDIOGRAM REPORT NAME: AMY BRADFORD UNIT #: [id number] ROOM: 502 DOCTOR: SHADI DRAFT REPORT BIRTHDATE: [birth year] [facility] Test Date: 2018-01-16 Test Time: 23:46:55 Pat Name: AMY BRADFORD Department: Room: [facility] Gender: F Middleware Developer: COLTON : 1990 Requested By: CHUY PACHECO Order Number: [id number] Reading MD: Shawn Valencia MD Measurements Intervals [place] Rate: 109 P: 16 [place]: 154 QRS: 26 QRSD: 77 T: -31 QT: 364 QTc: 491 Interpretive Statements Sinus tachycardia Low voltage, precordial leads Borderline T abnormalities, diffuse leads No change from earlier ECG this date. Electronically Signed On 01-17-2018 19:33:44 PDT by Shawn Valencia MD CM:EKGRPT:ELECTROCARDIOGRAM REPORT [id number] CHUY MCKINNEY DRAFT REPORT CHUY PACHECO DO
--- NOTE | ~2018-01-16 | EKG ---
[place], [place] ELECTROCARDIOGRAM REPORT NAME: AMY BRADFORD UNIT #: [id number] ROOM: 502 DOCTOR: SHADI DRAFT REPORT BIRTHDATE: [birth year] [facility] Test Date: 2018-01-17 Test Time: 02:43:11 Pat Name: AMY BRADFORD Department: Room: [facility] Gender: F Children'S Book Author: COLTON : 1990 Requested By: CHUY PACHECO Order Number: [id number] Reading MD: Shawn Valencia MD Measurements Intervals [place] Rate: 94 P: 11 PA: 167 QRS: 13 QRSD: 80 T: -51 QT: 365 QTc: 457 Interpretive Statements Sinus rhythm Borderline T abnormalities, diffuse leads Baseline wander in lead(s) V1 No change from ECG dated 01/16/18. Electronically Signed On 01-17-2018 19:35:35 PDT by Shawn Valencia MD CM:EKGRPT:ELECTROCARDIOGRAM REPORT [id number] 1935 CHUY MCKINNEY DRAFT REPORT CHUY PACHECO DO
[2018-01-16 20:50] VITALS: BP 131/103
[2018-01-16 20:59] LABS: BASO % 0.2 % (0.0-1.0); EOS # 0.2 10*3/uL (0.0-0.4); EOS % 1.9 % (1.0-4.0); HEMATOCRIT 39.2 % (37.0-47.0); HEMOGLOBIN 13.6 g/dl (12.0-16.0); LYMPH # 3.1 10*3/uL (1.3-4.4); LYMPH % 36.2 % (27.0-41.0); MEAN CELL VOLUME 79.2 fl (81.0-99.0); MEAN CORPUSCULAR HGB 27.5 pg (27.0-31.0); MEAN CORPUSCULAR HGB CONC 34.7 g/dl (33.0-37.0); MEAN PLATELET VOLUME 10.3 fl (9.6-12.3); MONO # 0.6 10*3/uL (0.1-1.0); MONO % 7.5 % (3.0-9.0); NEUT # 4.6 10*3/uL (2.3-7.9); NEUT % 53.8 % (47.0-73.0); PLATELET COUNT AUTOMATED 242 10*3/uL (130-400); RED BLOOD COUNT 4.95 10*6/uL (4.10-5.10); RED CELL DISTRI WIDTH 13.1 % (0-14.5); WHITE BLOOD COUNT 8.5 10*3/uL (4.8-10.8)
[2018-01-16 21:10] LABS: ACT PARTIAL THROMBO TIME 23.5 SECONDS (20.8-31.5); INTERNATIONAL NORM RATIO 0.9 (2.0-3.5)
[2018-01-16 21:17] LABS: ALKALINE PHOSPHATASE 122 U/L (45-117); BUN 9 mg/dl (7-24); CHLORIDE 100 mmol/L (98-107); CREATININE 0.94 mg/dL (0.55-1.02); POTASSIUM 3.8 mmol/L (3.5-5.1); SGOT/AST 74 IU/L (3-35); SGPT/ALT 126 U/L (12-78); SODIUM 134 mmol/L (136-145); TOTAL PROTEIN 8.8 gm/dL (6.4-8.2)
[2018-01-16 21:20] VITALS: BP 163/106
[2018-01-16 21:20] LABS: TROPONIN I < 0.015 ng/ml (<0.045)
[2018-01-16 21:23] VITALS: BP 160/98
[2018-01-16 21:39] VITALS: BP 148/101
[2018-01-16 22:01] LABS: CLARITY CLEAR (CLEAR); COLOR YELLOW (YELLOW); GLUCOSE 3+ (NEGATIVE)
[2018-01-16 22:02] LABS: BILIRUBIN NEGATIVE (NEGATIVE); BLOOD NEGATIVE (NEGATIVE); KETONE NEGATIVE (NEGATIVE); LEUKO ESTERASE NEGATIVE (NEGATIVE); NITRITE NEGATIVE (NEGATIVE); UROBILINOGEN 0.2 E.U./dl (0.2-1.0)
[2018-01-16 22:06] LABS: BACTERIA TRACE; EPITHELIAL CELLS 21-30
[2018-01-16 22:07] LABS: YEAST TRACE
[2018-01-16 22:24] VITALS: BP 148/105
[2018-01-16 23:49] VITALS: BP 136/82
[2018-01-17 00:20] VITALS: BP 154/90
[2018-01-17] MEDS ORDERED: LOPRESSOR50 M1 PO ×2 (01:00→01:06)
[2018-01-17] MEDS ORDERED: NORVASC5 MG PO (01:01)
[2018-01-17] MEDS ORDERED: FLUDROCORTISON0.1 MG PO (01:02)
[2018-01-17] MEDS ORDERED: CYCLOBENZAPRINE10 MG PO (01:02)
[2018-01-17] MEDS ORDERED: PROAIR HFA8.5 GM INH (01:03)
[2018-01-17 02:47] LABS: BASO % 0.4 % (0.0-1.0); EOS # 0.1 10*3/uL (0.0-0.4); EOS % 1.9 % (1.0-4.0); HEMATOCRIT 36.6 % (37.0-47.0); HEMOGLOBIN 12.6 g/dl (12.0-16.0); LYMPH # 2.9 10*3/uL (1.3-4.4); LYMPH % 40.2 % (27.0-41.0); MEAN CELL VOLUME 79.2 fl (81.0-99.0); MEAN CORPUSCULAR HGB 27.3 pg (27.0-31.0); MEAN CORPUSCULAR HGB CONC 34.4 g/dl (33.0-37.0); MEAN PLATELET VOLUME 10.2 fl (9.6-12.3); MONO # 0.5 10*3/uL (0.1-1.0); MONO % 6.9 % (3.0-9.0); NEUT # 3.6 10*3/uL (2.3-7.9); NEUT % 50.5 % (47.0-73.0); PLATELET COUNT AUTOMATED 219 10*3/uL (130-400); RED BLOOD COUNT 4.62 10*6/uL (4.10-5.10); RED CELL DISTRI WIDTH 12.9 % (0-14.5); WHITE BLOOD COUNT 7.2 10*3/uL (4.8-10.8)
[2018-01-17 03:04] LABS: ALBUMIN 3.7 gm/dl (3.1-4.5); ALKALINE PHOSPHATASE 107 U/L (45-117); BUN 9 mg/dl (7-24); CHLORIDE 103 mmol/L (98-107); CHOLESTEROL 152 mg/dL (<200); CREATININE 0.78 mg/dL (0.55-1.02); HDL CHOLESTEROL 22 mg/dl (40-60); PHOSPHOROUS 3.6 mg/dL (2.5-4.9); POTASSIUM 3.6 mmol/L (3.5-5.1); SGOT/AST 59 IU/L (3-35); SGPT/ALT 111 U/L (12-78); SODIUM 135 mmol/L (136-145); TOTAL PROTEIN 7.6 gm/dL (6.4-8.2); TRIGLYCERIDES 566 mg/dl (<150)
[2018-01-17 03:05] LABS: FREE T4 0.96 ng/dl (0.76-1.46)
[2018-01-17 04:21] LABS: VITAMIN D, 25-HYDROXY 19.8 ng/mL (30-100)
[2018-01-17 08:00] VITALS: BP 140/80; BP 150/96
[2018-01-17 12:00] VITALS: BP 136/76
[2018-01-17] MEDS ORDERED: LIPITOR10 MG PO (19:52)
[2018-01-17 20:00] VITALS: BP 153/90
== END 2018-01-17 20:57 | disposition home or self-care (01) | DRG 206 ==
LOC: ED 20:34 → 5E 23:20 → EDHOLD 23:20 → 5E 23:59
PROVIDERS: Emergency Medicine; Internal Medicine
PROC: 4A02XM4 Measurement of Cardiac Total Activity, External Approach (ICD-10-PCS; principal; 2018-01-17)
PROC: 3E073KZ Introduction of Other Diagnostic Substance into Coronary Artery, Percutaneous Approach (ICD-10-PCS; 2018-01-17)
DX: M94.0 Chondrocostal junction syndrome [Tietze] (principal); E87.1 Hypo-osmolality and hyponatremia; Z68.41 Body mass index [BMI] 40.0-44.9, adult; K21.9 Gastro-esophageal reflux disease without esophagitis; R07.89 Other chest pain; E11.65 Type 2 diabetes mellitus with hyperglycemia; Z79.899 Other long term (current) drug therapy; R10.11 Right upper quadrant pain; R55 Syncope and collapse; R00.0 Tachycardia, unspecified; R74.0 Nonspecific elevation of levels of transaminase and lactic acid dehydrogenase [LDH]; E83.41 Hypermagnesemia; R06.82 Tachypnea, not elsewhere classified; B34.9 Viral infection, unspecified; M48.061 Spinal stenosis, lumbar region without neurogenic claudication; F32.9 Major depressive disorder, single episode, unspecified; E66.01 Morbid (severe) obesity due to excess calories; I10 Essential (primary) hypertension; M54.12 Radiculopathy, cervical region; M25.512 Pain in left shoulder; G43.909 Migraine, unspecified, not intractable, without status migrainosus; E28.2 Polycystic ovarian syndrome; M25.511 Pain in right shoulder; J45.909 Unspecified asthma, uncomplicated; I45.81 Long QT syndrome; M54.5 Low back pain; G89.29 Other chronic pain; Z87.891 Personal history of nicotine dependence; Z91.018 Allergy to other foods; Z91.010 Allergy to peanuts; Z88.2 Allergy status to sulfonamides; Z88.8 Allergy status to other drugs, medicaments and biological substances; Z90.49 Acquired absence of other specified parts of digestive tract; Z82.49 Family history of ischemic heart disease and other diseases of the circulatory system; Z83.3 Family history of diabetes mellitus

== ENCOUNTER 2018-05-03 14:44 | Emergency (ER) | payer OTHER ==
[~2018-05-03 14:44] MED LIST changes: +FLUDROCORTISON0.1 MG PO; +LIPITOR10 MG PO; +LOPRESSOR50 M1 PO
[2018-05-03 16:57] VITALS: BP 111/71
== END 2018-05-03 17:57 | disposition home or self-care (01) ==
LOC: ED 14:44
DX: T14.90XA Injury, unspecified, initial encounter (principal); M79.622 Pain in left upper arm; M25.512 Pain in left shoulder; M25.522 Pain in left elbow; R53.1 Weakness; Z88.8 Allergy status to other drugs, medicaments and biological substances; Z91.010 Allergy to peanuts; Z88.2 Allergy status to sulfonamides; Z91.018 Allergy to other foods; Z79.899 Other long term (current) drug therapy; Z87.891 Personal history of nicotine dependence; W00.0XXA Fall on same level due to ice and snow, initial encounter; Y93.89 Activity, other specified; Y92.89 Other specified places as the place of occurrence of the external cause; Y99.8 Other external cause status

== ENCOUNTER 2018-06-07 15:23 | Emergency (ER) | payer OTHER ==
[~2018-06-07] VITALS: Ht 167.6 cm; Wt 113.4 kg
[2018-06-07 15:24] VITALS: BP 136/84
[2018-06-07] MEDS ORDERED: TAMIFLU 75MG CA75 MG PO (16:23)
== END 2018-06-07 17:45 | disposition home or self-care (01) ==
LOC: ED 15:23
DX: J10.1 Influenza due to other identified influenza virus with other respiratory manifestations (principal); J45.909 Unspecified asthma, uncomplicated; Z87.891 Personal history of nicotine dependence; Z79.899 Other long term (current) drug therapy; Z88.8 Allergy status to other drugs, medicaments and biological substances; Z91.010 Allergy to peanuts; Z88.2 Allergy status to sulfonamides; Z91.018 Allergy to other foods

== ENCOUNTER 2018-07-09 18:34 | Emergency (ER) | payer OTHER ==
[~2018-07-09] VITALS: Ht 167.6 cm; Wt 113.4 kg
[~2018-07-09 18:34] MED LIST changes: +TAMIFLU 75MG CA75 MG PO
[2018-07-09 18:37] VITALS: BP 142/88
[2018-07-09] MEDS ORDERED: PREDNISONE50 MG PO (20:14)
== END 2018-07-09 21:25 | disposition home or self-care (01) ==
LOC: ED 18:34
DX: G89.29 Other chronic pain (principal); M54.9 Dorsalgia, unspecified; M79.605 Pain in left leg; M79.604 Pain in right leg; R20.0 Anesthesia of skin; J45.909 Unspecified asthma, uncomplicated; E11.9 Type 2 diabetes mellitus without complications; I10 Essential (primary) hypertension; E66.01 Morbid (severe) obesity due to excess calories; Z88.8 Allergy status to other drugs, medicaments and biological substances; Z91.010 Allergy to peanuts; Z91.018 Allergy to other foods; Z88.2 Allergy status to sulfonamides; Z79.899 Other long term (current) drug therapy; Z90.49 Acquired absence of other specified parts of digestive tract; Z87.891 Personal history of nicotine dependence

== ENCOUNTER 2018-07-12 19:24 | Emergency (ER) | payer OTHER ==
[~2018-07-12] VITALS: Ht 167.6 cm; Wt 113.4 kg
[2018-07-12 20:03] LABS: BASO % 0.1 % (0.0-1.0); EOS % 0.1 % (1.0-4.0); HEMATOCRIT 39.4 % (37.0-47.0); LYMPH # 1.5 10*3/uL (1.3-4.4); LYMPH % 14.1 % (27.0-41.0); MEAN CELL VOLUME 77.3 fl (81.0-99.0); MEAN CORPUSCULAR HGB 25.5 pg (27.0-31.0); MEAN PLATELET VOLUME 10.5 fl (9.6-12.3); MONO # 0.3 10*3/uL (0.1-1.0); MONO % 2.7 % (3.0-9.0); NEUT # 8.9 10*3/uL (2.3-7.9); NEUT % 82.3 % (47.0-73.0); PLATELET COUNT AUTOMATED 232 10*3/uL (130-400); RED CELL DISTRI WIDTH 14.6 % (0-14.5); WHITE BLOOD COUNT 10.8 10*3/uL (4.8-10.8)
[2018-07-12 20:13] LABS: BILIRUBIN NEGATIVE (NEGATIVE); BLOOD 3+ (NEGATIVE); CLARITY SL CLOUDY (CLEAR); COLOR RED (YELLOW); GLUCOSE 3+ (NEGATIVE); KETONE TRACE (NEGATIVE); LEUKO ESTERASE NEGATIVE (NEGATIVE); NITRITE NEGATIVE (NEGATIVE); PH 5.5 (5.0-9.0); SPECIFIC GRAVITY <= 1.005 (1.005-1.030); UROBILINOGEN 0.2 E.U./dl (0.2-1.0)
[2018-07-12 20:21] LABS: ALBUMIN 3.7 gm/dl (3.1-4.5); ALKALINE PHOSPHATASE 89 U/L (45-117); BUN 15 mg/dl (7-24); CHLORIDE 102 mmol/L (98-107); CREATININE 1.08 mg/dL (0.55-1.02); POTASSIUM 4.1 mmol/L (3.5-5.1); SGOT/AST 13 IU/L (3-35); SGPT/ALT 43 U/L (12-78); SODIUM 136 mmol/L (136-145); TOTAL PROTEIN 7.9 gm/dL (6.4-8.2)
[2018-07-12 20:25] LABS: RBC TNTC rbc/hpf (0-2)
[2018-07-12 21:20] VITALS: BP 131/80
== END 2018-07-12 22:03 | disposition home or self-care (01) ==
LOC: ED 19:24
PROVIDERS: Emergency Medicine Emergency Medical Services
DX: E11.65 Type 2 diabetes mellitus with hyperglycemia (principal); R51 Headache; H53.8 Other visual disturbances; Z88.8 Allergy status to other drugs, medicaments and biological substances; Z91.018 Allergy to other foods; Z91.010 Allergy to peanuts; Z88.2 Allergy status to sulfonamides; Z79.899 Other long term (current) drug therapy; J45.909 Unspecified asthma, uncomplicated; E11.9 Type 2 diabetes mellitus without complications; E66.01 Morbid (severe) obesity due to excess calories; Z87.891 Personal history of nicotine dependence

== ENCOUNTER 2018-09-01 10:31 | Emergency (ER) | payer OTHER ==
[~2018-09-01] VITALS: Ht 167.6 cm; Wt 113.4 kg
[2018-09-01 10:33] VITALS: BP 140/81
[2018-09-01 12:08] LABS: BILIRUBIN NEGATIVE (NEGATIVE); BLOOD 3+ (NEGATIVE); CLARITY SL CLOUDY (CLEAR); COLOR YELLOW (YELLOW); GLUCOSE NEGATIVE (NEGATIVE); KETONE NEGATIVE (NEGATIVE); LEUKO ESTERASE TRACE (NEGATIVE); NITRITE NEGATIVE (NEGATIVE); SPECIFIC GRAVITY >= 1.030 (1.005-1.030)
[2018-09-01 12:20] LABS: BACTERIA 2+; EPITHELIAL CELLS 20-25; MUCOUS 1+; RBC 16-20 rbc/hpf (0-2); WBC 16-20 wbc/hpf (0-5)
[2018-09-01] MEDS ORDERED: ZITHROMAX250 MG PO (14:30)
[2018-09-01] MEDS ORDERED: CLARITIN-D 121 EACH PO (14:30)
== END 2018-09-01 14:34 | disposition home or self-care (01) ==
LOC: ED 10:31
PROVIDERS: Emergency Medicine
DX: H66.92 Otitis media, unspecified, left ear (principal); R51 Headache; J45.909 Unspecified asthma, uncomplicated; I10 Essential (primary) hypertension; E11.9 Type 2 diabetes mellitus without complications; E66.01 Morbid (severe) obesity due to excess calories; Z79.899 Other long term (current) drug therapy; Z88.0 Allergy status to penicillin; Z88.2 Allergy status to sulfonamides; Z91.018 Allergy to other foods; Z88.8 Allergy status to other drugs, medicaments and biological substances; Z91.010 Allergy to peanuts; Z87.891 Personal history of nicotine dependence

== ENCOUNTER 2019-01-29 21:46 | Inpatient (IN) | payer OTHER ==
[~2019-01-29] VITALS: Ht 167.6 cm; Wt 116.6 kg
[~2019-01-29 21:46] MED LIST changes: +CLARITIN-D 121 EACH PO
[2019-01-29 21:48] VITALS: BP 172/82
[2019-01-29 22:33] LABS: BASO % 0.3 % (0.0-1.0); EOS # 0.2 10*3/uL (0.0-0.4); EOS % 1.9 % (1.0-4.0); HEMATOCRIT 38.9 % (37.0-47.0); HEMOGLOBIN 13.2 g/dl (12.0-16.0); LYMPH # 2.8 10*3/uL (1.3-4.4); LYMPH % 30.3 % (27.0-41.0); MEAN CELL VOLUME 77.8 fl (81.0-99.0); MEAN CORPUSCULAR HGB 26.4 pg (27.0-31.0); MEAN CORPUSCULAR HGB CONC 33.9 g/dl (33.0-37.0); MEAN PLATELET VOLUME 10.7 fl (9.6-12.3); MONO # 0.8 10*3/uL (0.1-1.0); MONO % 8.2 % (3.0-9.0); NEUT # 5.5 10*3/uL (2.3-7.9); NEUT % 59.1 % (47.0-73.0); PLATELET COUNT AUTOMATED 223 10*3/uL (130-400); RED CELL DISTRI WIDTH 13.2 % (0-14.5); WHITE BLOOD COUNT 9.3 10*3/uL (4.8-10.8)
[2019-01-29 22:48] LABS: ALBUMIN 4.1 gm/dl (3.1-4.5); ALKALINE PHOSPHATASE 87 U/L (45-117); BUN 13 mg/dl (7-24); CHLORIDE 106 mmol/L (98-107); CREATININE 0.82 mg/dL (0.55-1.02); POTASSIUM 3.7 mmol/L (3.5-5.1); SGOT/AST 59 IU/L (3-35); SGPT/ALT 142 U/L (12-78); SODIUM 136 mmol/L (136-145); TOTAL PROTEIN 7.6 gm/dL (6.4-8.2)
[2019-01-29 22:50] LABS: TROPONIN I < 0.015 ng/ml (<0.045)
--- NOTE | 2019-01-29 22:56 | NUR ---
REPORT FROM QUITA FARRIS, ASSUMED CARE OF PT, PT RESTING QUIETLY, WITH CALL MARLOW IN REACH
[2019-01-29 23:16] VITALS: BP 111/76
--- NOTE | 2019-01-29 23:55 | NUR ---
PT RESTING QUIETLY, AWAITIING DISPOSITION, CALL MARLOW IN REACH
[2019-01-29 23:56] VITALS: BP 118/76
--- NOTE | 2019-01-30 01:24 | NUR ---
IV ACCESS ATTEMPTED X 2 BILAT AC, UNSUCCESSFUL, 2X2 APPLIED, PRESSURE HELD, NO BLEEDING NOTED PT TOLERATED WELL
[2019-01-30 01:25] VITALS: BP 117/61
--- NOTE | 2019-01-30 01:32 | NUR ---
CT COMPLETE ORDERED
--- NOTE | 2019-01-30 01:33 | NUR ---
PT CLEARED FOR ADMISSION BY DR. PACHECO
--- NOTE | 2019-01-30 01:39 | NUR ---
David flores, attempting iv access for ct as ordered before transport to floor
--- NOTE | 2019-01-30 01:44 | NUR ---
CT HEAD COMPLETE ORDERED, ADMITTING MD MADE AWARE THAT PT WAS UNABLE TO HAVE CTA DUE TO LACK OF IV ACCESS DR. PACHECO SPOKE WITH MD VIA TELEPHONE
[2019-01-30 01:52] VITALS: BP 147/88
--- NOTE | 2019-01-30 01:52 | NUR ---
A 28, admitted to , under the services of DAVID Valenzuela DO with a diagnosis of CHEST PAIN. Chief complaint is CHEST PAIN AND ELEVATED HR. Patient arrived via wheel chair from ER. Monitor applied. Initial assessment completed. Vital signs taken and recorded. DAVID VALENZUELA DO notified of admission to the unit. Orders received. See assessment for past medical history, medications and allergies. Patient and/or family oriented to unit. [facility] visitation policy reviewed. Clothing/patient valuable form completed. GERSON MAGDALENO
--- NOTE | 2019-01-30 01:55 | NUR ---
PT ADMITTED TO 4TH FLOOR WITH RN ON TELE, SR, SALINE LOCKS PATENT WITH NO REDNESS, RESP EASY, A&O, BELONGINGS WITH PT
[2019-01-30] MEDS ORDERED: NEURONTIN300 MG PO (02:11)
[2019-01-30] MEDS ORDERED: MOBIC7.5 MG PO (02:12)
[2019-01-30] MEDS ORDERED: TIZANIDINE2 MG PO (02:15)
[2019-01-30] MEDS ORDERED: M-NATAL PLUS T1 EACH PO (02:17)
--- NOTE | 2019-01-30 03:18 | NUR ---
PRN TYLENOL GIVEN FOR COMPLAINTS OF A HEADACHE RATED AN 8/10. WILL MONITOR FOR EFFECTIVENESS.
--- NOTE | 2019-01-30 04:04 | NUR ---
RE-EVALUATED AT THIS TIME. PT STATES THAT THE PRN TYLENOL IS EFFECTIVE. HER MATHUR HAS IMPROVED. CONTINUE TO MONITOR THE PT.
[2019-01-30 04:14] LABS: BASO % 0.4 % (0.0-1.0); EOS # 0.2 10*3/uL (0.0-0.4); EOS % 1.8 % (1.0-4.0); HEMATOCRIT 39.6 % (37.0-47.0); HEMOGLOBIN 13.1 g/dl (12.0-16.0); LYMPH # 3.2 10*3/uL (1.3-4.4); LYMPH % 32.6 % (27.0-41.0); MEAN CELL VOLUME 79.5 fl (81.0-99.0); MEAN CORPUSCULAR HGB 26.3 pg (27.0-31.0); MEAN CORPUSCULAR HGB CONC 33.1 g/dl (33.0-37.0); MEAN PLATELET VOLUME 10.4 fl (9.6-12.3); MONO # 0.8 10*3/uL (0.1-1.0); NEUT # 5.5 10*3/uL (2.3-7.9); NEUT % 56.9 % (47.0-73.0); PLATELET COUNT AUTOMATED 224 10*3/uL (130-400); RED BLOOD COUNT 4.98 10*6/uL (4.10-5.10); RED CELL DISTRI WIDTH 13.3 % (0-14.5); WHITE BLOOD COUNT 9.7 10*3/uL (4.8-10.8)
[2019-01-30 04:26] LABS: ALBUMIN 3.8 gm/dl (3.1-4.5); ALKALINE PHOSPHATASE 93 U/L (45-117); BUN 15 mg/dl (7-24); CHLORIDE 107 mmol/L (98-107); CHOLESTEROL 114 mg/dL (<200); CREATININE 0.81 mg/dL (0.55-1.02); HDL CHOLESTEROL 27 mg/dl (40-60); LDL CHOLESTEROL 33 mg/dL (9-159); PHOSPHOROUS 4.2 mg/dL (2.5-4.9); POTASSIUM 3.8 mmol/L (3.5-5.1); SGOT/AST 44 IU/L (3-35); SGPT/ALT 131 U/L (12-78); SODIUM 136 mmol/L (136-145); TOTAL PROTEIN 7.3 gm/dL (6.4-8.2); TRIGLYCERIDES 271 mg/dl (<150); VLDL CHOLESTEROL 54 mg/dL (6-40)
[2019-01-30 04:27] LABS: FREE T4 1.02 ng/dl (0.76-1.46)
[2019-01-30 04:40] LABS: ACT PARTIAL THROMBO TIME 28.9 SECONDS (20.0-32.1); INTERNATIONAL NORM RATIO 0.9 (2.0-3.5)
[2019-01-30 07:24] LABS: VITAMIN D, 25-HYDROXY 19.7 ng/mL (30-100)
--- NOTE | 2019-01-30 07:45 | NUR ---
PT RESTING IN BED. NO DISTRESS NOTED. WILL MONITOR
[2019-01-30 08:00] VITALS: BP 130/58
--- NOTE | 2019-01-30 08:49 | NUR ---
[facility] CARDIOLOGY OFFICE NOTIFIED OF CONSULT
--- NOTE | 2019-01-30 09:00 | NUR ---
Revenue Enforcement Collection Agent in to talk to patient. Patient states lives at home with . There are few steps in the home. Physician: pavan manjarrez [facility]: none Patient's level of ADLs: INDEPENDENT Patient has working utilities: all working DME: walker Follow-up physician's appointment after d/c: will be made by hospitalist nurse director upon discharge Does patient want to access PORTAL?: no Discharge plan discussed with patient, she states she lives at home with her , she is independent in adls and has spinal stenosis and occasionally has to use a walker, she states she will return home when medically stable and denies any home needs. NA TUCKER
[2019-01-30 11:59] VITALS: BP 119/65
[2019-01-30 16:00] VITALS: BP 97/64
--- NOTE | 2019-01-30 16:43 | NUR ---
PT INSTRUCTED ON HOW TO GIVE HERSELF INSULIN. PT GAVE HERSELF 3UNITS OF INSULIN SUCCESSFULLY
--- NOTE | 2019-01-30 19:10 | NUR ---
PT IS AWAKE AND SITTING UP IN BED WITH FAMILY AT THE BEDSIDE. THERE ARE NO S/S OF DISTRESS NOTED. DENIES CP, SOB, DIZZINESS. BED IS LOW, CALL LIGHT WITHIN REACH. WILL CONTINUE TO MONITOR.
--- NOTE | 2019-01-30 19:16 | NUR ---
24 HR CHART CHECK COMPLETE.
[2019-01-30 20:00] VITALS: BP 122/74
[2019-01-31] VITALS: BP 103/64; BP 122/83
[2019-01-31 06:52] LABS: BASO % 0.3 % (0.0-1.0); EOS # 0.2 10*3/uL (0.0-0.4); EOS % 2.3 % (1.0-4.0); HEMATOCRIT 39.8 % (37.0-47.0); HEMOGLOBIN 13.1 g/dl (12.0-16.0); LYMPH # 2.2 10*3/uL (1.3-4.4); LYMPH % 27.6 % (27.0-41.0); MEAN CORPUSCULAR HGB CONC 32.9 g/dl (33.0-37.0); MEAN PLATELET VOLUME 10.7 fl (9.6-12.3); MONO # 0.6 10*3/uL (0.1-1.0); NEUT # 4.9 10*3/uL (2.3-7.9); NEUT % 61.4 % (47.0-73.0); PLATELET COUNT AUTOMATED 226 10*3/uL (130-400); RED BLOOD COUNT 5.04 10*6/uL (4.10-5.10); RED CELL DISTRI WIDTH 13.2 % (0-14.5)
[2019-01-31 07:22] LABS: BUN 12 mg/dl (7-24); CHLORIDE 108 mmol/L (98-107); CREATININE 0.67 mg/dL (0.55-1.02); POTASSIUM 3.8 mmol/L (3.5-5.1); SODIUM 137 mmol/L (136-145)
--- NOTE | 2019-01-31 07:44 | NUR ---
PT RESTING IN BED. NO DISTRESS NOTED. WILL MONITOR PT REMAINS NPO
[2019-01-31 08:00] VITALS: BP 110/72
--- NOTE | 2019-01-31 09:00 | NUR ---
Raker Buffing Wheel in to talk to patient. Patient states lives at home with family. There are few steps in the home. Physician: none Pharmacy: none Home health services: none Patient's level of ADLs: INDEPENDENT Patient has working utilities: all working DME: none Follow-up physician's appointment after d/c: will be made by hospitalist nurse director upon discharge Does patient want to access PORTAL?: no Discharge plan discussed with patient, she states she lives at home with family, is independent in adls and ambulation, she states she drives, she will return home when medically stable and denies any home needs, case management will follow. NA TUCKER
--- NOTE | 2019-01-31 09:00 | NUR ---
case management visits with patient, she is having a stress test today and possibly discharged this evening, patient denies any home needs at this time
--- NOTE | 2019-01-31 10:10 | NUR ---
INFORMED CONSENT SIGNED FOR FOR LEXISCAN STRESS TEST WITH DR. MANCINI. PULSE OX 100% AND LUNGS CLEAR. COMPLETED ONE MINUTE OF LEXISCAN PROTOCOL RECEIVING LEXISCAN 0.4MG OVER 10 SECONDS. NO ARRHYTHMIS NOTED WITH NON DIAGNOSTIC ST CHANGES PRESENT. PT C/O SOB AND HEADACHE. LAST RECOVERY HR 112, BP 118/80. WAITING NUCLEAR SCANNING IN STABLE CONDITION.
[2019-01-31 12:00] VITALS: BP 138/79
--- NOTE | 2019-01-31 12:02 | NUR ---
PT MEDICATED WITH TYLENOL FOR C/O HEADACHE . WILL MONITOR
--- NOTE | 2019-01-31 13:01 | NUR ---
Nutritional Support Services Note: Discussing with pt and pts grandmother 1800cal diabetic diet. Diet copy given to pt. Pt has been a diabetic for a long time. Doesn't comply with diet. Grandmother is also a diabetic. Stressed importance of three meals daily and a night snack. Encouraged exercise. Pt is wanting to lose weight to become . Encouraged healthy eating. Pt states she will comply with the diet the best she can. Encouraged follow up if needed. Ht.5'6 Wt.[id number]#. Anabelle Toribio Rdn Ld
[2019-01-31] MEDS ORDERED: VITAMIN D32000 UNI1 PO (14:16)
--- NOTE | 2019-01-31 16:00 | NUR ---
Discharge instructions reviewed with patient/family. Patient receptive and verbalizes understanding. Follow-up care arranged. Written instructions given to patient/family. JOHN ALBERTO
== END 2019-01-31 16:00 | disposition home or self-care (01) | DRG 206 ==
LOC: ED 21:46 → EDHOLD 01-30 00:59 → 4E 01-30 00:59
PROVIDERS: Internal Medicine; ADMIT Internal Medicine
DX: M94.0 Chondrocostal junction syndrome [Tietze] (principal); I16.1 Hypertensive emergency; Z68.41 Body mass index [BMI] 40.0-44.9, adult; R74.0 Nonspecific elevation of levels of transaminase and lactic acid dehydrogenase [LDH]; M25.511 Pain in right shoulder; J45.909 Unspecified asthma, uncomplicated; I10 Essential (primary) hypertension; M54.5 Low back pain; M25.512 Pain in left shoulder; F32.9 Major depressive disorder, single episode, unspecified; E11.65 Type 2 diabetes mellitus with hyperglycemia; E66.01 Morbid (severe) obesity due to excess calories; E78.5 Hyperlipidemia, unspecified; E28.2 Polycystic ovarian syndrome; G89.29 Other chronic pain; E55.9 Vitamin D deficiency, unspecified; Z88.0 Allergy status to penicillin; Z88.2 Allergy status to sulfonamides; Z91.010 Allergy to peanuts; Z88.8 Allergy status to other drugs, medicaments and biological substances; Z79.899 Other long term (current) drug therapy; Z79.84 Long term (current) use of oral hypoglycemic drugs; Z90.49 Acquired absence of other specified parts of digestive tract; Z87.891 Personal history of nicotine dependence; Z82.49 Family history of ischemic heart disease and other diseases of the circulatory system; Z83.3 Family history of diabetes mellitus; Z84.89 Family history of other specified conditions; Z91.018 Allergy to other foods

== ENCOUNTER 2019-03-04 21:07 | Emergency (ER) | payer OTHER ==
[~2019-03-04] VITALS: Ht 167.6 cm; Wt 115.2 kg
[~2019-03-04 21:07] MED LIST changes: +M-NATAL PLUS T1 EACH PO; +MOBIC7.5 MG PO; +NEURONTIN300 MG PO; +TIZANIDINE2 MG PO; +VITAMIN D32000 UNI1 PO
[2019-03-04 21:08] VITALS: BP 163/96
== END 2019-03-04 22:50 | disposition home or self-care (01) ==
LOC: ED 21:07
DX: S83.92XA Sprain of unspecified site of left knee, initial encounter (principal); S90.32XA Contusion of left foot, initial encounter; I10 Essential (primary) hypertension; E11.9 Type 2 diabetes mellitus without complications; E66.01 Morbid (severe) obesity due to excess calories; J45.909 Unspecified asthma, uncomplicated; G89.29 Other chronic pain; Z88.0 Allergy status to penicillin; Z88.8 Allergy status to other drugs, medicaments and biological substances; Z88.2 Allergy status to sulfonamides; Z91.018 Allergy to other foods; Z91.010 Allergy to peanuts; Z79.899 Other long term (current) drug therapy; Z87.891 Personal history of nicotine dependence; W18.09XA Striking against other object with subsequent fall, initial encounter; Y93.89 Activity, other specified; Y92.89 Other specified places as the place of occurrence of the external cause; Y99.8 Other external cause status

== ENCOUNTER 2019-07-06 20:38 | Emergency (ER) | payer OTHER ==
[~2019-07-06] VITALS: Ht 167.6 cm; Wt 113.4 kg
[2019-07-06 21:49] LABS: BASO % 0.3 % (0.0-1.0); EOS # 0.2 10*3/uL (0.0-0.4); HEMATOCRIT 38.9 % (37.0-47.0); LYMPH # 2.9 10*3/uL (1.3-4.4); LYMPH % 39.6 % (27.0-41.0); MEAN CELL VOLUME 82.8 fl (81.0-99.0); MEAN CORPUSCULAR HGB 27.7 pg (27.0-31.0); MEAN CORPUSCULAR HGB CONC 33.4 g/dl (33.0-37.0); MEAN PLATELET VOLUME 10.4 fl (9.6-12.3); MONO # 0.6 10*3/uL (0.1-1.0); NEUT # 3.7 10*3/uL (2.3-7.9); PLATELET COUNT AUTOMATED 219 10*3/uL (130-400); RED CELL DISTRI WIDTH 12.9 % (0-14.5); WHITE BLOOD COUNT 7.3 10*3/uL (4.8-10.8)
[2019-07-06 22:05] VITALS: BP 130/82
[2019-07-06 22:05] LABS: ALBUMIN 3.6 gm/dl (3.1-4.5); ALKALINE PHOSPHATASE 91 U/L (45-117); BUN 10 mg/dl (7-24); CHLORIDE 107 mmol/L (98-107); POTASSIUM 3.9 mmol/L (3.5-5.1); SGOT/AST 42 IU/L (3-35); SGPT/ALT 92 U/L (12-78); SODIUM 139 mmol/L (136-145); TOTAL PROTEIN 7.2 gm/dL (6.4-8.2)
[2019-07-06 22:21] LABS: B-hCG (QUALITATIVE) NEGATIVE (NEGATIVE); CREATININE 0.89 mg/dL (0.55-1.02)
[2019-07-06 22:33] LABS: BILIRUBIN NEGATIVE (NEGATIVE); CLARITY CLEAR (CLEAR); COLOR YELLOW (YELLOW); GLUCOSE 1+ (NEGATIVE); KETONE NEGATIVE (NEGATIVE)
[2019-07-06 22:34] LABS: BLOOD 3+ (NEGATIVE); LEUKO ESTERASE NEGATIVE (NEGATIVE); NITRITE NEGATIVE (NEGATIVE); PH 6.5 (5.0-9.0); SPECIFIC GRAVITY 1.025 (1.005-1.030); UROBILINOGEN 0.2 E.U./dl (0.2-1.0)
[2019-07-06 22:40] LABS: BACTERIA 1+; EPITHELIAL CELLS 15-20
[2019-07-06] MEDS ORDERED: MACROBID100 M1 PO (23:11)
== END 2019-07-06 23:42 | disposition home or self-care (01) ==
LOC: ED 20:38
PROVIDERS: Emergency Medicine Emergency Medical Services
DX: G43.909 Migraine, unspecified, not intractable, without status migrainosus (principal); I10 Essential (primary) hypertension; R82.71 Bacteriuria; E11.9 Type 2 diabetes mellitus without complications; Z88.8 Allergy status to other drugs, medicaments and biological substances; Z88.2 Allergy status to sulfonamides; Z91.010 Allergy to peanuts; Z79.899 Other long term (current) drug therapy

== ENCOUNTER 2019-08-01 17:22 | Emergency (ER) | payer OTHER ==
[~2019-08-01] VITALS: Ht 167.6 cm; Wt 117.9 kg
== END 2019-08-01 20:59 | disposition home or self-care (01) ==
LOC: ED 17:22
DX: M54.5 Low back pain (principal); G89.29 Other chronic pain; J45.909 Unspecified asthma, uncomplicated; E11.9 Type 2 diabetes mellitus without complications; I10 Essential (primary) hypertension; Z88.0 Allergy status to penicillin; Z88.8 Allergy status to other drugs, medicaments and biological substances; Z91.010 Allergy to peanuts; Z91.018 Allergy to other foods; Z88.2 Allergy status to sulfonamides; Z79.2 Long term (current) use of antibiotics; Z79.899 Other long term (current) drug therapy; Z90.49 Acquired absence of other specified parts of digestive tract; Z87.891 Personal history of nicotine dependence

== ENCOUNTER 2019-08-22 14:09 | Emergency (ER) | payer OTHER ==
[~2019-08-22] VITALS: Ht 167.6 cm; Wt 117.9 kg
[2019-08-22 14:45] LABS: BASO % 0.2 % (0.0-1.0); EOS # 0.1 10*3/uL (0.0-0.4); EOS % 1.5 % (1.0-4.0); HEMATOCRIT 37.9 % (37.0-47.0); LYMPH # 2.2 10*3/uL (1.3-4.4); LYMPH % 27.1 % (27.0-41.0); MEAN CELL VOLUME 79.6 fl (81.0-99.0); MEAN CORPUSCULAR HGB 27.3 pg (27.0-31.0); MEAN CORPUSCULAR HGB CONC 34.3 g/dl (33.0-37.0); MEAN PLATELET VOLUME 10.1 fl (9.6-12.3); MONO # 0.7 10*3/uL (0.1-1.0); MONO % 8.6 % (3.0-9.0); NEUT # 5.2 10*3/uL (2.3-7.9); NEUT % 62.4 % (47.0-73.0); PLATELET COUNT AUTOMATED 209 10*3/uL (130-400); RED BLOOD COUNT 4.76 10*6/uL (4.10-5.10); RED CELL DISTRI WIDTH 13.2 % (0-14.5); WHITE BLOOD COUNT 8.3 10*3/uL (4.8-10.8)
[2019-08-22 14:57] LABS: ACT PARTIAL THROMBO TIME 28.5 SECONDS (20.0-32.1); INTERNATIONAL NORM RATIO 0.9 (2.0-3.5)
[2019-08-22 15:01] LABS: ALBUMIN 3.6 gm/dl (3.1-4.5); ALKALINE PHOSPHATASE 89 U/L (45-117); BUN 10 mg/dl (7-24); CHLORIDE 106 mmol/L (98-107); CREATININE 0.87 mg/dL (0.55-1.02); LIPASE 147 U/L (73-393); POTASSIUM 3.9 mmol/L (3.5-5.1); SGOT/AST 41 IU/L (3-35); SGPT/ALT 88 U/L (12-78); SODIUM 138 mmol/L (136-145); TOTAL PROTEIN 7.3 gm/dL (6.4-8.2)
[2019-08-22 15:02] LABS: BETA-HCG, QUANT < 1.0 mIU/mL (1-3); TROPONIN I < 0.015 ng/ml (<0.045)
[2019-08-22 22:00] LABS: BUN 9 mg/dl (7-24); CHLORIDE 108 mmol/L (98-107); CREATININE 0.69 mg/dL (0.55-1.02); POTASSIUM 3.5 mmol/L (3.5-5.1); SODIUM 140 mmol/L (136-145)
[2019-08-22 22:30] VITALS: BP 147/62
== END 2019-08-22 22:45 ==
LOC: ED 14:09
PROVIDERS: Emergency Medicine; Internal Medicine
DX: R07.9 Chest pain, unspecified (principal); R42 Dizziness and giddiness; R06.02 Shortness of breath; J45.909 Unspecified asthma, uncomplicated; E11.9 Type 2 diabetes mellitus without complications; I10 Essential (primary) hypertension; Z88.0 Allergy status to penicillin; Z88.8 Allergy status to other drugs, medicaments and biological substances; Z91.010 Allergy to peanuts; Z88.2 Allergy status to sulfonamides; Z91.018 Allergy to other foods; Z79.2 Long term (current) use of antibiotics; Z79.899 Other long term (current) drug therapy; Z90.49 Acquired absence of other specified parts of digestive tract; Z87.891 Personal history of nicotine dependence

== ENCOUNTER 2020-01-12 22:16 | Emergency (ER) | payer OTHER ==
[~2020-01-12] VITALS: Ht 167.6 cm; Wt 114.3 kg
[~2020-01-12 22:16] MED LIST changes: +METHOCARBAMOL500 M1 PO
[2020-01-12 22:22] VITALS: BP 155/99
[2020-01-12] MEDS ORDERED: PREDNISONE20 M1 PO (23:26)
== END 2020-01-13 00:35 | disposition home or self-care (01) ==
LOC: ED 22:16
DX: T78.40XA Allergy, unspecified, initial encounter (principal); Z88.8 Allergy status to other drugs, medicaments and biological substances; Z88.0 Allergy status to penicillin; Z91.018 Allergy to other foods; Z79.84 Long term (current) use of oral hypoglycemic drugs; X58.XXXA Exposure to other specified factors, initial encounter

== ENCOUNTER 2020-02-22 11:07 | Emergency (ER) | payer OTHER ==
[~2020-02-22] VITALS: Ht 167.6 cm; Wt 113.4 kg
[~2020-02-22 11:07] MED LIST changes: +PREDNISONE20 M1 PO
[2020-02-22 11:19] VITALS: BP 145/103
[2020-02-22] MEDS ORDERED: FLONASE ALLERG9.9 ML NAS (12:27)
[2020-02-22] MEDS ORDERED: ZITHROMAX250 MG PO (12:27)
== END 2020-02-22 13:13 | disposition home or self-care (01) ==
LOC: ED 11:07
DX: Z01.84 Encounter for antibody response examination (principal); J01.90 Acute sinusitis, unspecified; Z88.8 Allergy status to other drugs, medicaments and biological substances; Z88.0 Allergy status to penicillin; Z20.828 Contact with and (suspected) exposure to other viral communicable diseases

== ENCOUNTER 2020-04-03 11:06 | Emergency (ER) | payer OTHER ==
[~2020-04-03] VITALS: Ht 167.6 cm; Wt 115.7 kg
[~2020-04-03 11:06] MED LIST changes: +FLONASE ALLERG9.9 ML NAS
[2020-04-03 11:20] VITALS: BP 138/91
== END 2020-04-03 13:49 | disposition home or self-care (01) ==
LOC: ED 11:06
DX: S46.911A Strain of unspecified muscle, fascia and tendon at shoulder and upper arm level, right arm, initial encounter (principal); S66.911A Strain of unspecified muscle, fascia and tendon at wrist and hand level, right hand, initial encounter; Z91.018 Allergy to other foods; Z88.2 Allergy status to sulfonamides; Z79.899 Other long term (current) drug therapy; Z88.0 Allergy status to penicillin; Z87.891 Personal history of nicotine dependence; W01.0XXA Fall on same level from slipping, tripping and stumbling without subsequent striking against object, initial encounter; Y93.89 Activity, other specified; Y92.89 Other specified places as the place of occurrence of the external cause; Y99.8 Other external cause status

== ENCOUNTER 2020-06-08 20:51 | Emergency (ER) | payer OTHER ==
[~2020-06-08] VITALS: Ht 167.6 cm; Wt 114.3 kg
[2020-06-08] MEDS ORDERED: NAPROSYN500 MG PO (21:30)
== END 2020-06-08 21:38 | disposition home or self-care (01) ==
LOC: ED 20:51
DX: S89.92XA Unspecified injury of left lower leg, initial encounter (principal); Z88.0 Allergy status to penicillin; Z88.8 Allergy status to other drugs, medicaments and biological substances; Z88.2 Allergy status to sulfonamides; Z91.018 Allergy to other foods; Z79.899 Other long term (current) drug therapy; Z79.2 Long term (current) use of antibiotics; Z87.891 Personal history of nicotine dependence; X58.XXXA Exposure to other specified factors, initial encounter; Y93.89 Activity, other specified; Y92.89 Other specified places as the place of occurrence of the external cause; Y99.8 Other external cause status

== ENCOUNTER 2020-06-17 18:53 | Emergency (ER) | payer OTHER ==
[~2020-06-17] VITALS: Wt 115.7 kg
[2020-06-17 23:58] VITALS: BP 120/70
[2020-06-18] MEDS ORDERED: HYDROCODONE-AC1 EAC1 PO (01:52)
== END 2020-06-18 02:00 | disposition home or self-care (01) ==
LOC: ED 18:53
DX: S86.912A Strain of unspecified muscle(s) and tendon(s) at lower leg level, left leg, initial encounter (principal); I10 Essential (primary) hypertension; E11.9 Type 2 diabetes mellitus without complications; G43.909 Migraine, unspecified, not intractable, without status migrainosus; J45.909 Unspecified asthma, uncomplicated; F32.9 Major depressive disorder, single episode, unspecified; E66.01 Morbid (severe) obesity due to excess calories; F41.9 Anxiety disorder, unspecified; F17.200 Nicotine dependence, unspecified, uncomplicated; Z88.8 Allergy status to other drugs, medicaments and biological substances; Z88.0 Allergy status to penicillin; Z91.010 Allergy to peanuts; Z88.2 Allergy status to sulfonamides; Z91.018 Allergy to other foods; Z79.899 Other long term (current) drug therapy; Z79.82 Long term (current) use of aspirin; Z90.49 Acquired absence of other specified parts of digestive tract; Z98.890 Other specified postprocedural states; X58.XXXA Exposure to other specified factors, initial encounter; Y93.89 Activity, other specified; Y92.89 Other specified places as the place of occurrence of the external cause; Y99.8 Other external cause status

== ENCOUNTER 2020-10-27 06:11 | Emergency (ER) | payer OTHER ==
[~2020-10-27] VITALS: Ht 167.6 cm; Wt 113.4 kg
[~2020-10-27 06:11] MED LIST changes: +HYDROCODONE-AC1 EAC1 PO; +METFORMIN HYD1000 MG PO; -METFORMIN1000 MG PO
[2020-10-27 07:20] VITALS: BP 138/72
[2020-10-27] MEDS ORDERED: CYCLOBENZAPRINE10 MG PO ×2 (09:07)
[2020-10-27] MEDS ORDERED: NAPROXEN250 MG PO ×2 (09:07)
[2020-10-27] MEDS ORDERED: TYLENOL325 M1 PO ×2 (09:07)
== END 2020-10-27 09:12 | disposition home or self-care (01) ==
LOC: ED 06:11
DX: M79.18 Myalgia, other site (principal); R20.2 Paresthesia of skin; M54.2 Cervicalgia; R11.10 Vomiting, unspecified; I10 Essential (primary) hypertension; G43.909 Migraine, unspecified, not intractable, without status migrainosus; J45.909 Unspecified asthma, uncomplicated; F32.9 Major depressive disorder, single episode, unspecified; E66.01 Morbid (severe) obesity due to excess calories; E11.9 Type 2 diabetes mellitus without complications; Z88.0 Allergy status to penicillin; Z88.8 Allergy status to other drugs, medicaments and biological substances; Z91.010 Allergy to peanuts; Z88.2 Allergy status to sulfonamides; Z91.018 Allergy to other foods; Z79.2 Long term (current) use of antibiotics; Z79.899 Other long term (current) drug therapy; Z90.49 Acquired absence of other specified parts of digestive tract; Z98.890 Other specified postprocedural states; Z87.891 Personal history of nicotine dependence

== ENCOUNTER 2020-11-11 20:15 | Emergency (ER) | payer OTHER ==
[~2020-11-11] VITALS: Ht 167.6 cm; Wt 113.4 kg
[~2020-11-11 20:15] MED LIST changes: +NAPROXEN250 MG PO; +TYLENOL325 M1 PO
[2020-11-11 21:44] VITALS: BP 135/84
== END 2020-11-11 21:44 | disposition home or self-care (01) ==
LOC: ED 20:15
DX: T78.1XXA Other adverse food reactions, not elsewhere classified, initial encounter (principal); R06.89 Other abnormalities of breathing; R09.89 Other specified symptoms and signs involving the circulatory and respiratory systems; E66.9 Obesity, unspecified; Z88.0 Allergy status to penicillin; Z88.8 Allergy status to other drugs, medicaments and biological substances; Z91.010 Allergy to peanuts; Z88.2 Allergy status to sulfonamides; Z91.018 Allergy to other foods; Z79.2 Long term (current) use of antibiotics; Z79.899 Other long term (current) drug therapy; Z90.49 Acquired absence of other specified parts of digestive tract; Z98.890 Other specified postprocedural states; Z87.891 Personal history of nicotine dependence; X58.XXXA Exposure to other specified factors, initial encounter

== ENCOUNTER 2020-12-01 16:06 | Emergency (ER) | payer OTHER ==
[2020-12-01 16:39] VITALS: BP 146/103
[2020-12-01 17:06] LABS: BASO % 0.2 % (0.0-1.0); EOS # 0.1 10*3/uL (0.0-0.4); EOS % 1.2 % (1.0-4.0); HEMATOCRIT 41.6 % (37.0-47.0); LYMPH # 2.4 10*3/uL (1.3-4.4); LYMPH % 27.5 % (27.0-41.0); MEAN CELL VOLUME 79.7 fl (81.0-99.0); MEAN CORPUSCULAR HGB CONC 33.9 g/dl (33.0-37.0); MEAN PLATELET VOLUME 10.4 fl (9.6-12.3); MONO # 0.7 10*3/uL (0.1-1.0); MONO % 7.7 % (3.0-9.0); NEUT # 5.4 10*3/uL (2.3-7.9); NEUT % 63.1 % (47.0-73.0); PLATELET COUNT AUTOMATED 206 10*3/uL (130-400); RED BLOOD COUNT 5.22 10*6/uL (4.10-5.10); RED CELL DISTRI WIDTH 12.9 % (0-14.5); WHITE BLOOD COUNT 8.6 10*3/uL (4.8-10.8)
[2020-12-01 17:21] LABS: ALBUMIN 3.8 gm/dl (3.1-4.5); ALKALINE PHOSPHATASE 118 U/L (45-117); BUN 9 mg/dl (7-24); CHLORIDE 104 mmol/L (98-107); CREATININE 0.79 mg/dL (0.55-1.02); POTASSIUM 3.8 mmol/L (3.5-5.1); SGOT/AST 49 IU/L (3-35); SGPT/ALT 128 U/L (12-78); SODIUM 136 mmol/L (136-145); TOTAL PROTEIN 7.7 gm/dL (6.4-8.2)
[2020-12-01 18:53] LABS: BILIRUBIN Negative (Negative); BLOOD Negative (Negative); CLARITY Clear (Clear); COLOR Yellow (Yellow); GLUCOSE 3+ (Negative); KETONE Negative (Negative); LEUKO ESTERASE Negative (Negative); NITRITE Negative (Negative); SPECIFIC GRAVITY >= 1.030 (1.001-1.030); UROBILINOGEN 0.2 E.U./dl (0.0-1.0)
[2020-12-01 19:01] LABS: BACTERIA 1+; RBC 0-2 rbc/hpf (0-2); WBC 0-2 wbc/hpf (0-5); YEAST 1+
== END 2020-12-01 19:30 | disposition home or self-care (01) ==
LOC: ED 16:06
PROVIDERS: Emergency Medicine
DX: E11.65 Type 2 diabetes mellitus with hyperglycemia (principal); R42 Dizziness and giddiness; I10 Essential (primary) hypertension; J45.909 Unspecified asthma, uncomplicated; G43.909 Migraine, unspecified, not intractable, without status migrainosus; E66.01 Morbid (severe) obesity due to excess calories; Z88.0 Allergy status to penicillin; Z88.2 Allergy status to sulfonamides; Z88.8 Allergy status to other drugs, medicaments and biological substances; Z91.018 Allergy to other foods; Z91.010 Allergy to peanuts; Z79.2 Long term (current) use of antibiotics; Z79.899 Other long term (current) drug therapy; Z90.49 Acquired absence of other specified parts of digestive tract; Z98.890 Other specified postprocedural states; Z87.891 Personal history of nicotine dependence

== ENCOUNTER 2020-12-03 19:33 | Emergency (ER) | payer OTHER ==
[~2020-12-03] VITALS: Ht 172.7 cm; Wt 112.5 kg
[2020-12-03 22:04] LABS: BASO % 0.4 % (0.0-1.0); EOS # 0.1 10*3/uL (0.0-0.4); EOS % 1.3 % (1.0-4.0); HEMATOCRIT 36.2 % (37.0-47.0); LYMPH # 2.2 10*3/uL (1.3-4.4); LYMPH % 26.2 % (27.0-41.0); MEAN CORPUSCULAR HGB 27.3 pg (27.0-31.0); MEAN CORPUSCULAR HGB CONC 33.7 g/dl (33.0-37.0); MEAN PLATELET VOLUME 10.3 fl (9.6-12.3); MONO # 0.6 10*3/uL (0.1-1.0); MONO % 7.2 % (3.0-9.0); NEUT # 5.4 10*3/uL (2.3-7.9); NEUT % 63.7 % (47.0-73.0); PLATELET COUNT AUTOMATED 191 10*3/uL (130-400); RED BLOOD COUNT 4.47 10*6/uL (4.10-5.10); RED CELL DISTRI WIDTH 12.9 % (0-14.5); WHITE BLOOD COUNT 8.5 10*3/uL (4.8-10.8)
[2020-12-03 22:16] LABS: ALBUMIN 3.9 gm/dl (3.1-4.5); ALKALINE PHOSPHATASE 101 U/L (45-117); BUN 7 mg/dl (7-24); CHLORIDE 108 mmol/L (98-107); CREATININE 0.58 mg/dL (0.55-1.02); POTASSIUM 3.2 mmol/L (3.5-5.1); SGOT/AST 62 IU/L (3-35); SGPT/ALT 125 U/L (12-78); SODIUM 138 mmol/L (136-145); TOTAL PROTEIN 7.2 gm/dL (6.4-8.2)
[2020-12-03 22:55] VITALS: BP 122/83
[2020-12-03 23:07] LABS: BILIRUBIN Negative (Negative); BLOOD Negative (Negative); CLARITY Clear (Clear); COLOR Yellow (Yellow); GLUCOSE Negative (Negative); KETONE Trace (Negative); LEUKO ESTERASE Trace (Negative); NITRITE Negative (Negative); UROBILINOGEN 0.2 E.U./dl (0.0-1.0)
[2020-12-03 23:17] LABS: EPITHELIAL CELLS 41-50
[2020-12-03 23:18] LABS: BACTERIA TRACE
== END 2020-12-04 01:46 | disposition home or self-care (01) ==
LOC: ED 19:33
PROVIDERS: Emergency Medicine
DX: E11.65 Type 2 diabetes mellitus with hyperglycemia (principal); I10 Essential (primary) hypertension; Z88.0 Allergy status to penicillin; Z91.010 Allergy to peanuts; Z88.2 Allergy status to sulfonamides; Z88.1 Allergy status to other antibiotic agents; Z91.018 Allergy to other foods; Z87.891 Personal history of nicotine dependence

== ENCOUNTER → 2020-12-24 | Outpatient (CLI) | payer OTHER ==
[2020-12-24 12:14] LABS: THYROID STIM HORMONE (HS) 1.41 uIU/ml (0.358-4.75)
== END | disposition home or self-care (01) ==
LOC: LAB 11:16
PROVIDERS: ATTEND Family Medicine
DX: E11.9 Type 2 diabetes mellitus without complications (principal); I10 Essential (primary) hypertension; E78.5 Hyperlipidemia, unspecified

== ENCOUNTER 2021-03-09 18:35 | Emergency (ER) | payer OTHER ==
[~2021-03-09] VITALS: Ht 167.6 cm; Wt 111.1 kg
[2021-03-09 18:48] VITALS: BP 163/115
[2021-03-09 22:05] LABS: BILIRUBIN Negative (Negative); BLOOD 2+ (Negative); CLARITY Clear (Clear); COLOR Yellow (Yellow); GLUCOSE 3+ (Negative); KETONE Negative (Negative); LEUKO ESTERASE Negative (Negative); NITRITE Negative (Negative); SPECIFIC GRAVITY >= 1.030 (1.001-1.030); UROBILINOGEN 0.2 E.U./dl (0.0-1.0)
[2021-03-09 22:13] LABS: BACTERIA 2+
[2021-03-09] MEDS ORDERED: MACROBID100 M1 PO (23:55)
== END 2021-03-10 00:10 | disposition home or self-care (01) ==
LOC: ED 18:35
PROVIDERS: Emergency Medicine
DX: N39.0 Urinary tract infection, site not specified (principal); E66.9 Obesity, unspecified; I10 Essential (primary) hypertension; E11.9 Type 2 diabetes mellitus without complications; Z88.0 Allergy status to penicillin; Z88.2 Allergy status to sulfonamides; Z91.018 Allergy to other foods; Z91.010 Allergy to peanuts; Z88.8 Allergy status to other drugs, medicaments and biological substances; Z87.891 Personal history of nicotine dependence

== ENCOUNTER 2021-04-15 10:36 | Emergency (ER) | payer OTHER ==
[~2021-04-15] VITALS: Ht 167.6 cm; Wt 111.1 kg
[2021-04-15 10:57] VITALS: BP 156/107
== END 2021-04-15 12:11 | disposition left against medical advice (07) ==
LOC: ED 10:36
DX: M54.9 Dorsalgia, unspecified (principal); R26.2 Difficulty in walking, not elsewhere classified; R63.0 Anorexia; Z53.21 Procedure and treatment not carried out due to patient leaving prior to being seen by health care provider

== ENCOUNTER 2021-05-12 11:17 | Emergency (ER) | payer OTHER ==
[~2021-05-12] VITALS: Ht 167.6 cm; Wt 113.4 kg
[2021-05-12 11:40] VITALS: BP 153/117
[2021-05-12] MEDS ORDERED: PROVENTIL HFA6.7 GM INH (15:43)
[2021-05-12] MEDS ORDERED: PREDNISONE20 M1 PO (15:43)
== END 2021-05-12 15:47 | disposition home or self-care (01) ==
LOC: ED 11:17
DX: U07.1 COVID-19 (principal); R11.2 Nausea with vomiting, unspecified; Z88.0 Allergy status to penicillin; Z88.8 Allergy status to other drugs, medicaments and biological substances; Z91.010 Allergy to peanuts; Z88.2 Allergy status to sulfonamides; Z91.018 Allergy to other foods; Z79.2 Long term (current) use of antibiotics; Z79.899 Other long term (current) drug therapy; Z90.49 Acquired absence of other specified parts of digestive tract; Z98.890 Other specified postprocedural states; Z87.891 Personal history of nicotine dependence

== ENCOUNTER 2021-09-29 16:15 | Emergency (ER) | payer OTHER ==
[~2021-09-29] VITALS: Ht 167.6 cm; Wt 96.6 kg
[~2021-09-29 16:15] MED LIST changes: +PROVENTIL HFA6.7 GM INH
[2021-09-29 16:32] VITALS: BP 134/90
[2021-09-29] MEDS ORDERED: CYCLOBENZAPRINE5 M3 PO (21:22)
[2021-09-29] MEDS ORDERED: Motrin,Rufen800 MG PO (21:22)
== END 2021-09-29 21:31 | disposition home or self-care (01) ==
LOC: ED 16:15
DX: S16.1XXA Strain of muscle, fascia and tendon at neck level, initial encounter (principal); Z90.49 Acquired absence of other specified parts of digestive tract; Z79.899 Other long term (current) drug therapy; Z88.0 Allergy status to penicillin; Z88.1 Allergy status to other antibiotic agents; V49.88XA Car occupant (driver) (passenger) injured in other specified transport accidents, initial encounter; Y93.89 Activity, other specified; Y92.413 State road as the place of occurrence of the external cause; Y99.9 Unspecified external cause status

== ENCOUNTER 2021-10-07 11:03 | Emergency (ER) | payer OTHER ==
[~2021-10-07] VITALS: Ht 167.6 cm; Wt 96.6 kg
[~2021-10-07 11:03] MED LIST changes: +CYCLOBENZAPRINE5 M3 PO
[2021-10-07 11:56] LABS: BASO % 0.3 % (0.0-1.0); EOS # 0.1 10*3/uL (0.0-0.4); EOS % 0.9 % (1.0-4.0); HEMATOCRIT 38.9 % (37.0-47.0); LYMPH # 1.8 10*3/uL (1.3-4.4); LYMPH % 22.8 % (27.0-41.0); MEAN CELL VOLUME 79.2 fl (81.0-99.0); MEAN CORPUSCULAR HGB 26.9 pg (27.0-31.0); MEAN CORPUSCULAR HGB CONC 33.9 g/dl (33.0-37.0); MEAN PLATELET VOLUME 10.5 fl (9.6-12.3); MONO # 0.6 10*3/uL (0.1-1.0); MONO % 7.8 % (3.0-9.0); NEUT # 5.2 10*3/uL (2.3-7.9); NEUT % 67.8 % (47.0-73.0); PLATELET COUNT AUTOMATED 200 10*3/uL (130-400); RED BLOOD COUNT 4.91 10*6/uL (4.10-5.10); RED CELL DISTRI WIDTH 12.4 % (0-14.5); WHITE BLOOD COUNT 7.7 10*3/uL (4.8-10.8)
[2021-10-07 12:06] LABS: BILIRUBIN Negative (Negative); BLOOD Negative (Negative); CLARITY Clear (Clear); COLOR Yellow (Yellow); GLUCOSE 3+ (Negative); KETONE 2+ (Negative); LEUKO ESTERASE Negative (Negative); NITRITE Negative (Negative); SPECIFIC GRAVITY >= 1.030 (1.001-1.030); UROBILINOGEN 0.2 E.U./dl (0.0-1.0)
[2021-10-07 12:07] LABS: ACT PARTIAL THROMBO TIME 26.6 SECONDS (20.0-32.1); INTERNATIONAL NORM RATIO 0.9 (2.0-3.5)
[2021-10-07 12:18] LABS: ALKALINE PHOSPHATASE 134 U/L (45-117); BUN 11 mg/dl (7-24); CHLORIDE 103 mmol/L (98-107); CREATININE 0.79 mg/dL (0.55-1.02); LIPASE 151 U/L (73-393); POTASSIUM 3.8 mmol/L (3.5-5.1); SGOT/AST 15 IU/L (3-35); SGPT/ALT 32 U/L (12-78); SODIUM 132 mmol/L (136-145); TOTAL PROTEIN 7.6 gm/dL (6.4-8.2)
[2021-10-07 12:19] LABS: BACTERIA 1+
[2021-10-07 14:43] VITALS: BP 142/84
[2021-10-07] MEDS ORDERED: MECLIZINE HCL25 M2 PO (17:45)
[2021-10-07] MEDS ORDERED: ZOFRAN4 MG PO (17:45)
== END 2021-10-07 17:56 | disposition home or self-care (01) ==
LOC: ED 11:03
PROVIDERS: Emergency Medicine
DX: R42 Dizziness and giddiness (principal); R55 Syncope and collapse; Z88.0 Allergy status to penicillin; Z91.010 Allergy to peanuts; Z88.1 Allergy status to other antibiotic agents; Z90.49 Acquired absence of other specified parts of digestive tract; Z87.891 Personal history of nicotine dependence

== ENCOUNTER 2021-11-13 00:37 | Emergency (ER) | payer OTHER ==
[~2021-11-13] VITALS: Ht 167.6 cm; Wt 97.5 kg
[2021-11-13 01:15] LABS: BASO % 0.3 % (0.0-1.0); EOS # 0.1 10*3/uL (0.0-0.4); EOS % 1.1 % (1.0-4.0); HEMATOCRIT 37.9 % (37.0-47.0); LYMPH # 2.7 10*3/uL (1.3-4.4); LYMPH % 35.8 % (27.0-41.0); MEAN CELL VOLUME 78.6 fl (81.0-99.0); MEAN CORPUSCULAR HGB 28.2 pg (27.0-31.0); MEAN CORPUSCULAR HGB CONC 35.9 g/dl (33.0-37.0); MEAN PLATELET VOLUME 10.3 fl (9.6-12.3); MONO # 0.6 10*3/uL (0.1-1.0); MONO % 7.4 % (3.0-9.0); NEUT # 4.2 10*3/uL (2.3-7.9); NEUT % 55.3 % (47.0-73.0); PLATELET COUNT AUTOMATED 255 10*3/uL (130-400); RED BLOOD COUNT 4.82 10*6/uL (4.10-5.10); RED CELL DISTRI WIDTH 12.4 % (0-14.5); WHITE BLOOD COUNT 7.6 10*3/uL (4.8-10.8)
[2021-11-13] MEDS ORDERED: FLUONAZOLE150 M1 PO (01:20)
[2021-11-13] MEDS ORDERED: TERCONAZOLE45 GM V (01:21)
[2021-11-13 01:32] LABS: ALKALINE PHOSPHATASE 130 U/L (45-117); CHLORIDE 102 mmol/L (98-107); CREATININE 0.79 mg/dL (0.55-1.02); SGOT/AST 23 IU/L (3-35)
[2021-11-13 01:41] LABS: B-hCG (QUALITATIVE) NEGATIVE (NEGATIVE)
[2021-11-13 02:17] LABS: BUN 12 mg/dl (7-24); POTASSIUM 3.6 mmol/L (3.5-5.1); SODIUM 136 mmol/L (136-145)
[2021-11-13 02:18] LABS: SGPT/ALT 26 U/L (12-78); TOTAL PROTEIN 7.2 gm/dL (6.4-8.2)
[2021-11-13 04:17] VITALS: BP 136/85
[2021-11-13] MEDS ORDERED: Orphenadrine C100 MG PO (06:03)
[2021-11-13] MEDS ORDERED: NAPROSYN500 MG PO (06:03)
== END 2021-11-13 06:08 | disposition home or self-care (01) ==
LOC: ED 00:37
PROVIDERS: Emergency Medicine
DX: S14.9XXA Injury of unspecified nerves of neck, initial encounter (principal); F07.81 Postconcussional syndrome; F17.200 Nicotine dependence, unspecified, uncomplicated; R42 Dizziness and giddiness; Z88.0 Allergy status to penicillin; Z88.8 Allergy status to other drugs, medicaments and biological substances; Z88.2 Allergy status to sulfonamides; Z91.018 Allergy to other foods; Z79.899 Other long term (current) drug therapy; Z90.49 Acquired absence of other specified parts of digestive tract; Z98.890 Other specified postprocedural states; V89.2XXA Person injured in unspecified motor-vehicle accident, traffic, initial encounter; Y93.89 Activity, other specified; Y92.89 Other specified places as the place of occurrence of the external cause; Y99.8 Other external cause status

== ENCOUNTER 2021-11-23 11:12 | Emergency (ER) | payer OTHER ==
[~2021-11-23] VITALS: Wt 97.5 kg
[~2021-11-23 11:12] MED LIST changes: +FLUONAZOLE150 M1 PO; +TERCONAZOLE45 GM V
[2021-11-23 11:21] VITALS: BP 152/102
[2021-11-23] MEDS ORDERED: METHOCARBAMOL500 M1 PO (11:54)
== END 2021-11-23 12:10 | disposition home or self-care (01) ==
LOC: ED 11:12
DX: S13.8XXA Sprain of joints and ligaments of other parts of neck, initial encounter (principal); R51.9 Headache, unspecified; Z87.891 Personal history of nicotine dependence; Z90.49 Acquired absence of other specified parts of digestive tract; Z79.899 Other long term (current) drug therapy; Z88.0 Allergy status to penicillin; Z88.1 Allergy status to other antibiotic agents; V49.88XA Car occupant (driver) (passenger) injured in other specified transport accidents, initial encounter; Y93.89 Activity, other specified; Y92.413 State road as the place of occurrence of the external cause; Y99.9 Unspecified external cause status

== ENCOUNTER 2021-11-29 13:00 | Emergency (ER) | payer OTHER ==
[~2021-11-29] VITALS: Ht 167.6 cm; Wt 97.5 kg
[2021-11-29 13:15] VITALS: BP 139/86
== END 2021-11-29 17:08 | disposition home or self-care (01) ==
LOC: ED 13:00
DX: R51.9 Headache, unspecified (principal); Z88.0 Allergy status to penicillin; Z88.8 Allergy status to other drugs, medicaments and biological substances; Z91.010 Allergy to peanuts; Z88.2 Allergy status to sulfonamides; Z91.018 Allergy to other foods; Z91.048 Other nonmedicinal substance allergy status; Z79.899 Other long term (current) drug therapy; Z90.49 Acquired absence of other specified parts of digestive tract; Z98.890 Other specified postprocedural states; Z87.891 Personal history of nicotine dependence

== ENCOUNTER 2021-11-30 09:57 | Emergency (ER) | payer OTHER ==
[~2021-11-30] VITALS: Wt 97.5 kg
[2021-11-30 10:09] VITALS: BP 156/97
== END 2021-11-30 10:35 | disposition home or self-care (01) ==
LOC: ED 09:57
DX: R42 Dizziness and giddiness (principal); Z91.018 Allergy to other foods; Z88.0 Allergy status to penicillin; Z88.8 Allergy status to other drugs, medicaments and biological substances; Z91.010 Allergy to peanuts; Z88.2 Allergy status to sulfonamides; Z79.899 Other long term (current) drug therapy; Z90.49 Acquired absence of other specified parts of digestive tract; Z98.890 Other specified postprocedural states; Z87.891 Personal history of nicotine dependence

== ENCOUNTER 2022-02-25 14:41 | Emergency (ER) | payer OTHER ==
[~2022-02-25] VITALS: Ht 162.5 cm; Wt 96.2 kg
[2022-02-25 16:27] LABS: BASO % 0.3 % (0.0-1.0); EOS # 0.1 10*3/uL (0.0-0.4); EOS % 0.8 % (1.0-4.0); HEMATOCRIT 39.9 % (37.0-47.0); LYMPH # 2.4 10*3/uL (1.3-4.4); LYMPH % 33.7 % (27.0-41.0); MEAN CELL VOLUME 79.8 fl (81.0-99.0); MEAN CORPUSCULAR HGB CONC 35.1 g/dl (33.0-37.0); MEAN PLATELET VOLUME 10.4 fl (9.6-12.3); MONO # 0.5 10*3/uL (0.1-1.0); MONO % 7.2 % (3.0-9.0); NEUT # 4.2 10*3/uL (2.3-7.9); NEUT % 57.7 % (47.0-73.0); PLATELET COUNT AUTOMATED 188 10*3/uL (130-400); RED CELL DISTRI WIDTH 12.7 % (0-14.5); WHITE BLOOD COUNT 7.2 10*3/uL (4.8-10.8)
[2022-02-25 16:30] LABS: BILIRUBIN Negative (Negative); BLOOD Negative (Negative); CLARITY Clear (Clear); COLOR Yellow (Yellow); GLUCOSE 3+ (Negative); KETONE 1+ (Negative); LEUKO ESTERASE Negative (Negative); NITRITE Negative (Negative); SPECIFIC GRAVITY >= 1.030 (1.001-1.030); UROBILINOGEN 0.2 E.U./dl (0.0-1.0)
[2022-02-25 16:43] LABS: ALKALINE PHOSPHATASE 115 U/L (45-117); BUN 12 mg/dl (7-24); CHLORIDE 104 mmol/L (98-107); POTASSIUM 3.8 mmol/L (3.5-5.1); SGOT/AST 11 IU/L (3-35); SGPT/ALT 28 U/L (12-78); SODIUM 135 mmol/L (136-145); TOTAL PROTEIN 7.6 gm/dL (6.4-8.2)
[2022-02-25 16:50] LABS: BACTERIA 2+; EPITHELIAL CELLS 51-100; WBC 0-2 wbc/hpf (0-5)
[2022-02-25 20:11] VITALS: BP 127/91
== END 2022-02-25 20:23 | disposition home or self-care (01) ==
LOC: ED 14:41
PROVIDERS: Nurse Practitioner Family
DX: E11.65 Type 2 diabetes mellitus with hyperglycemia (principal); I10 Essential (primary) hypertension; R07.89 Other chest pain; Z88.8 Allergy status to other drugs, medicaments and biological substances; Z88.0 Allergy status to penicillin; Z91.018 Allergy to other foods; Z91.010 Allergy to peanuts; Z88.2 Allergy status to sulfonamides; Z79.899 Other long term (current) drug therapy; Z90.49 Acquired absence of other specified parts of digestive tract; Z98.890 Other specified postprocedural states; Z87.891 Personal history of nicotine dependence

== ENCOUNTER 2022-03-02 18:50 | Emergency (ER) | payer OTHER ==
[~2022-03-02] VITALS: Ht 162.5 cm; Wt 96.2 kg
[2022-03-02 19:46] LABS: BASO % 0.3 % (0.0-1.0); EOS # 0.1 10*3/uL (0.0-0.4); EOS % 1.2 % (1.0-4.0); HEMATOCRIT 41.2 % (37.0-47.0); LYMPH # 2.5 10*3/uL (1.3-4.4); LYMPH % 41.4 % (27.0-41.0); MEAN CELL VOLUME 79.5 fl (81.0-99.0); MEAN CORPUSCULAR HGB CONC 35.2 g/dl (33.0-37.0); MONO # 0.5 10*3/uL (0.1-1.0); MONO % 7.8 % (3.0-9.0); NEUT # 2.9 10*3/uL (2.3-7.9); NEUT % 49.1 % (47.0-73.0); PLATELET COUNT AUTOMATED 237 10*3/uL (130-400); RED BLOOD COUNT 5.18 10*6/uL (4.10-5.10); RED CELL DISTRI WIDTH 12.8 % (0-14.5)
[2022-03-02 19:56] LABS: BILIRUBIN Negative (Negative); BLOOD Negative (Negative); CLARITY Clear (Clear); COLOR Yellow (Yellow); GLUCOSE 3+ (Negative); KETONE 1+ (Negative); LEUKO ESTERASE Negative (Negative); NITRITE Negative (Negative); PH 6.5 (4.5-8.0); SPECIFIC GRAVITY >= 1.030 (1.001-1.030); UROBILINOGEN 0.2 E.U./dl (0.0-1.0)
[2022-03-02 20:06] LABS: ALKALINE PHOSPHATASE 120 U/L (45-117); BUN 9 mg/dl (7-24); CHLORIDE 102 mmol/L (98-107); CREATININE 0.82 mg/dL (0.55-1.02); POTASSIUM 3.5 mmol/L (3.5-5.1); SGPT/ALT 30 U/L (12-78); SODIUM 135 mmol/L (136-145); TOTAL PROTEIN 8.1 gm/dL (6.4-8.2)
[2022-03-02 21:13] VITALS: BP 133/77
== END 2022-03-02 21:18 | disposition home or self-care (01) ==
LOC: ED 18:50
PROVIDERS: Emergency Medicine
DX: E11.65 Type 2 diabetes mellitus with hyperglycemia (principal); I10 Essential (primary) hypertension; Z87.891 Personal history of nicotine dependence; Z90.49 Acquired absence of other specified parts of digestive tract; Z79.899 Other long term (current) drug therapy; Z88.0 Allergy status to penicillin; Z88.8 Allergy status to other drugs, medicaments and biological substances; Z91.010 Allergy to peanuts; Z88.1 Allergy status to other antibiotic agents; Z91.018 Allergy to other foods

== ENCOUNTER 2022-03-09 06:11 | Emergency (ER) | payer OTHER ==
[2022-03-09 06:33] VITALS: BP 162/95
[2022-03-09 09:30] LABS: BASO % 0.5 % (0.0-1.0); EOS # 0.1 10*3/uL (0.0-0.4); EOS % 0.9 % (1.0-4.0); HEMATOCRIT 38.1 % (37.0-47.0); LYMPH # 1.9 10*3/uL (1.3-4.4); LYMPH % 33.3 % (27.0-41.0); MEAN CELL VOLUME 80.9 fl (81.0-99.0); MEAN CORPUSCULAR HGB 28.5 pg (27.0-31.0); MEAN CORPUSCULAR HGB CONC 35.2 g/dl (33.0-37.0); MEAN PLATELET VOLUME 10.3 fl (9.6-12.3); MONO # 0.5 10*3/uL (0.1-1.0); NEUT # 3.3 10*3/uL (2.3-7.9); PLATELET COUNT AUTOMATED 184 10*3/uL (130-400); RED BLOOD COUNT 4.71 10*6/uL (4.10-5.10); RED CELL DISTRI WIDTH 12.8 % (0-14.5); WHITE BLOOD COUNT 5.7 10*3/uL (4.8-10.8)
[2022-03-09 09:40] LABS: ACT PARTIAL THROMBO TIME 24.4 SECONDS (20.0-32.1); INTERNATIONAL NORM RATIO 0.9 (2.0-3.5)
[2022-03-09 09:47] LABS: BUN 10 mg/dl (7-24); CHLORIDE 109 mmol/L (98-107); LIPASE 144 U/L (73-393); POTASSIUM 3.5 mmol/L (3.5-5.1); SODIUM 137 mmol/L (136-145)
[2022-03-09 09:49] LABS: ALKALINE PHOSPHATASE 84 U/L (45-117); CREATININE 0.67 mg/dL (0.55-1.02); SGPT/ALT 26 U/L (12-78); TOTAL PROTEIN 7.4 gm/dL (6.4-8.2)
== END 2022-03-09 11:20 | disposition home or self-care (01) ==
LOC: ED 06:11
PROVIDERS: Emergency Medicine
DX: M79.601 Pain in right arm (principal); T42.6X5A Adverse effect of other antiepileptic and sedative-hypnotic drugs, initial encounter; Z87.891 Personal history of nicotine dependence; Z98.890 Other specified postprocedural states; Z90.49 Acquired absence of other specified parts of digestive tract; Z79.899 Other long term (current) drug therapy; Z88.0 Allergy status to penicillin; Z88.1 Allergy status to other antibiotic agents; Y92.89 Other specified places as the place of occurrence of the external cause

== ENCOUNTER 2022-03-25 12:28 | Inpatient (IN) | payer OTHER ==
[~2022-03-25] VITALS: Ht 162.5 cm; Wt 97.6 kg
[2022-03-25 12:43] VITALS: BP 151/90
[2022-03-25 13:15] LABS: BASO % 0.3 % (0.0-1.0); EOS # 0.1 10*3/uL (0.0-0.4); EOS % 1.1 % (1.0-4.0); HEMATOCRIT 41.2 % (37.0-47.0); LYMPH # 1.9 10*3/uL (1.3-4.4); LYMPH % 26.7 % (27.0-41.0); MEAN CELL VOLUME 81.1 fl (81.0-99.0); MEAN CORPUSCULAR HGB 27.4 pg (27.0-31.0); MEAN CORPUSCULAR HGB CONC 33.7 g/dl (33.0-37.0); MEAN PLATELET VOLUME 10.2 fl (9.6-12.3); MONO # 0.6 10*3/uL (0.1-1.0); NEUT # 4.5 10*3/uL (2.3-7.9); NEUT % 63.6 % (47.0-73.0); PLATELET COUNT AUTOMATED 203 10*3/uL (130-400); RED BLOOD COUNT 5.08 10*6/uL (4.10-5.10); RED CELL DISTRI WIDTH 12.4 % (0-14.5); WHITE BLOOD COUNT 7.1 10*3/uL (4.8-10.8)
[2022-03-25 13:25] LABS: BILIRUBIN Negative (Negative); BLOOD Negative (Negative); CLARITY Cloudy (Clear); COLOR Yellow (Yellow); GLUCOSE 3+ (Negative); KETONE Trace (Negative); LEUKO ESTERASE Negative (Negative); NITRITE Negative (Negative); SPECIFIC GRAVITY >= 1.030 (1.001-1.030)
[2022-03-25 13:33] LABS: URINE AMPHETAMINES Negative (1000ng/ml); URINE BARBITURATES Negative (200ng/ml); URINE BENZODIAZEPINES Negative (200ng/ml); URINE CANNABINOIDS (THC) Negative (50ng/ml); URINE COCAINE Negative (300ng/ml); URINE METHADONE Negative (300ng/ml); URINE OPIATES Negative (300ng/ml); URINE PHENCYCLIDINE Negative (25ng/ml)
[2022-03-25 13:37] LABS: ALKALINE PHOSPHATASE 97 U/L (46-116); BUN 8 mg/dl (9-23); CHLORIDE 103 mmol/L (98-107); CREATININE 0.64 mg/dL (0.55-1.02); POTASSIUM 3.7 mmol/L (3.4-5.1); SGPT/ALT 26 U/L (10-49); SODIUM 137 mmol/L (136-145); TOTAL PROTEIN 6.8 gm/dL (6.0-8.0)
[2022-03-25 13:41] LABS: BACTERIA 2+; EPITHELIAL CELLS TNTC
[2022-03-25 15:00] VITALS: BP 150/88
[2022-03-25] MEDS ORDERED: ZANAFLEX4 MG PO (20:51)
[2022-03-25] MEDS ORDERED: MELOXICAM15 MG PO (20:52)
[2022-03-25] MEDS ORDERED: INSULIN LI100 UNIT/2 SQ (20:54)
[2022-03-25] MEDS ORDERED: LEVEMIR FL100 UNIT/1 SC (20:54)
[2022-03-25 23:00] VITALS: BP 132/90
[2022-03-26 02:01] VITALS: BP 132/74
[2022-03-26 05:01] VITALS: BP 126/78
[2022-03-26 07:45] VITALS: BP 130/72
[2022-03-26 16:05] VITALS: BP 145/86
[2022-03-26 17:51] VITALS: BP 145/86
[2022-03-26 20:00] VITALS: BP 138/82
[2022-03-27 00:11] VITALS: BP 128/80
[2022-03-27 05:45] LABS: BUN 10 mg/dl (9-23); CHLORIDE 101 mmol/L (98-107); CHOLESTEROL 217 mg/dL (<200); CPK 32 U/L (34-171); CREATININE 0.67 mg/dL (0.55-1.02); LDL CHOLESTEROL 138 mg/dL (9-159); POTASSIUM 3.7 mmol/L (3.4-5.1); SODIUM 135 mmol/L (136-145); THYROID STIM HORMONE (HS) 2.087 uIU/ml (0.550-4.780); TRIGLYCERIDES 200 mg/dl (<150)
[2022-03-27 06:06] VITALS: BP 116/74
[2022-03-27 06:09] LABS: BASO % 0.3 % (0.0-1.0); EOS # 0.1 10*3/uL (0.0-0.4); EOS % 1.3 % (1.0-4.0); HEMATOCRIT 38.9 % (37.0-47.0); LYMPH # 2.4 10*3/uL (1.3-4.4); LYMPH % 36.9 % (27.0-41.0); MEAN CELL VOLUME 82.6 fl (81.0-99.0); MEAN CORPUSCULAR HGB 27.8 pg (27.0-31.0); MEAN CORPUSCULAR HGB CONC 33.7 g/dl (33.0-37.0); MEAN PLATELET VOLUME 10.4 fl (9.6-12.3); MONO # 0.5 10*3/uL (0.1-1.0); NEUT # 3.4 10*3/uL (2.3-7.9); NEUT % 53.3 % (47.0-73.0); PLATELET COUNT AUTOMATED 203 10*3/uL (130-400); RED BLOOD COUNT 4.71 10*6/uL (4.10-5.10); RED CELL DISTRI WIDTH 12.5 % (0-14.5); WHITE BLOOD COUNT 6.4 10*3/uL (4.8-10.8)
[2022-03-27 09:30] VITALS: BP 126/68
[2022-03-27 12:25] VITALS: BP 121/70
[2022-03-27 17:10] VITALS: BP 120/76
[2022-03-27 20:25] VITALS: BP 126/78
[2022-03-28 01:58] VITALS: BP 124/72
[2022-03-28 02:30] VITALS: BP 113/70
[2022-03-28 08:00] VITALS: BP 123/75
[2022-03-28 11:00] VITALS: BP 145/84
[2022-03-28 12:00] VITALS: BP 145/80
[2022-03-28] MEDS ORDERED: LIPITOR80 MG PO (15:34)
== END 2022-03-28 17:29 | disposition short-term general hospital (02) | DRG 552 ==
LOC: ED 12:28 → EDHOLD 20:07 → 5E 20:07
PROVIDERS: Nurse Practitioner Family; Student in an Organized Health Care Education/Training Program; ADMIT Internal Medicine; ATTEND Internal Medicine
DX: M50.30 Other cervical disc degeneration, unspecified cervical region (principal); E55.9 Vitamin D deficiency, unspecified; M54.59 Other low back pain; E11.9 Type 2 diabetes mellitus without complications; I10 Essential (primary) hypertension; G89.29 Other chronic pain; F32.A Depression, unspecified; E66.01 Morbid (severe) obesity due to excess calories; M25.512 Pain in left shoulder; M54.50 Low back pain, unspecified; E11.65 Type 2 diabetes mellitus with hyperglycemia; J45.20 Mild intermittent asthma, uncomplicated; E11.69 Type 2 diabetes mellitus with other specified complication; Z88.0 Allergy status to penicillin; Z88.2 Allergy status to sulfonamides; Z88.8 Allergy status to other drugs, medicaments and biological substances; Z91.010 Allergy to peanuts; Z90.49 Acquired absence of other specified parts of digestive tract; Z87.891 Personal history of nicotine dependence; Z82.49 Family history of ischemic heart disease and other diseases of the circulatory system; Z83.3 Family history of diabetes mellitus; Z86.16 Personal history of COVID-19; Z79.4 Long term (current) use of insulin; Z68.36 Body mass index [BMI] 36.0-36.9, adult

== ENCOUNTER 2022-05-26 03:23 | Emergency (ER) | payer OTHER ==
[~2022-05-26] VITALS: Ht 167.6 cm; Wt 81.6 kg
[~2022-05-26 03:23] MED LIST changes: +INSULIN LI100 UNIT/2 SQ; +LEVEMIR FL100 UNIT/1 SC; +LIPITOR80 MG PO; +MELOXICAM15 MG PO; +ZANAFLEX4 MG PO
[2022-05-26 04:19] LABS: BASO % 0.4 % (0.0-1.0); EOS # 0.1 10*3/uL (0.0-0.4); EOS % 1.5 % (1.0-4.0); HEMATOCRIT 33.9 % (37.0-47.0); LYMPH % 25.5 % (27.0-41.0); MEAN CELL VOLUME 80.1 fl (81.0-99.0); MEAN CORPUSCULAR HGB 28.1 pg (27.0-31.0); MEAN CORPUSCULAR HGB CONC 35.1 g/dl (33.0-37.0); MEAN PLATELET VOLUME 10.2 fl (9.6-12.3); MONO # 0.7 10*3/uL (0.1-1.0); MONO % 8.8 % (3.0-9.0); NEUT % 63.5 % (47.0-73.0); PLATELET COUNT AUTOMATED 203 10*3/uL (130-400); RED BLOOD COUNT 4.23 10*6/uL (4.10-5.10); RED CELL DISTRI WIDTH 12.4 % (0-14.5); WHITE BLOOD COUNT 7.8 10*3/uL (4.8-10.8)
[2022-05-26 04:34] LABS: ALKALINE PHOSPHATASE 65 U/L (46-116); BUN 12 mg/dl (9-23); CHLORIDE 104 mmol/L (98-107); POTASSIUM 3.3 mmol/L (3.4-5.1); SGPT/ALT 17 U/L (10-49); TOTAL PROTEIN 6.7 gm/dL (6.0-8.0)
[2022-05-26 05:32] LABS: BILIRUBIN Negative (Negative); BLOOD Negative (Negative); CLARITY Clear (Clear); COLOR Yellow (Yellow); GLUCOSE 2+ (Negative); KETONE Negative (Negative); LEUKO ESTERASE Negative (Negative); NITRITE Negative (Negative); UROBILINOGEN 0.2 E.U./dl (0.0-1.0)
[2022-05-26 05:53] LABS: BACTERIA TRACE; RBC 0-2 rbc/hpf (0-2); WBC 0-2 wbc/hpf (0-5)
[2022-05-26 06:56] VITALS: BP 137/85
== END 2022-05-26 06:57 | disposition home or self-care (01) ==
LOC: ED 03:23
PROVIDERS: Emergency Medicine
DX: E11.65 Type 2 diabetes mellitus with hyperglycemia (principal); M51.26 Other intervertebral disc displacement, lumbar region; F32.A Depression, unspecified; I10 Essential (primary) hypertension; G89.29 Other chronic pain; G43.909 Migraine, unspecified, not intractable, without status migrainosus; Z88.0 Allergy status to penicillin; Z88.2 Allergy status to sulfonamides; Z91.010 Allergy to peanuts; Z88.8 Allergy status to other drugs, medicaments and biological substances; J45.909 Unspecified asthma, uncomplicated; Z90.49 Acquired absence of other specified parts of digestive tract; Z98.890 Other specified postprocedural states; Z87.891 Personal history of nicotine dependence

== ENCOUNTER 2022-10-02 00:18 | Emergency (ER) | payer OTHER ==
[~2022-10-02] VITALS: Ht 165.1 cm; Wt 97.1 kg
[2022-10-02 05:15] VITALS: BP 162/98
== END 2022-10-02 06:54 | disposition home or self-care (01) ==
LOC: ED 00:18
DX: M51.26 Other intervertebral disc displacement, lumbar region (principal); R20.0 Anesthesia of skin; R20.2 Paresthesia of skin; Z88.0 Allergy status to penicillin; Z88.8 Allergy status to other drugs, medicaments and biological substances; Z88.2 Allergy status to sulfonamides; Z79.899 Other long term (current) drug therapy; Z79.4 Long term (current) use of insulin; Z90.49 Acquired absence of other specified parts of digestive tract; Z98.890 Other specified postprocedural states; Z87.891 Personal history of nicotine dependence

== ENCOUNTER 2022-10-22 17:19 | Emergency (ER) | payer OTHER ==
[~2022-10-22] VITALS: Ht 167.6 cm; Wt 93.0 kg
[2022-10-22 17:32] VITALS: BP 135/96
[2022-10-22 18:09] LABS: BASO % 0.3 % (0.0-1.0); EOS % 0.3 % (1.0-4.0); HEMATOCRIT 42.1 % (37.0-47.0); LYMPH # 0.8 10*3/uL (1.3-4.4); LYMPH % 8.1 % (27.0-41.0); MEAN CELL VOLUME 78.1 fl (81.0-99.0); MEAN CORPUSCULAR HGB 27.3 pg (27.0-31.0); MEAN CORPUSCULAR HGB CONC 34.9 g/dl (33.0-37.0); MONO # 0.6 10*3/uL (0.1-1.0); NEUT # 8.6 10*3/uL (2.3-7.9); PLATELET COUNT AUTOMATED 200 10*3/uL (130-400); RED BLOOD COUNT 5.39 10*6/uL (4.10-5.10); RED CELL DISTRI WIDTH 13.1 % (0-14.5); WHITE BLOOD COUNT 10.1 10*3/uL (4.8-10.8)
[2022-10-22 18:11] LABS: VENOUS PH 7.441 (7.37-7.45)
[2022-10-22 18:43] LABS: ALKALINE PHOSPHATASE 81 U/L (46-116); BUN 8 mg/dl (9-23); CHLORIDE 104 mmol/L (98-107); POTASSIUM 3.4 mmol/L (3.4-5.1); SGPT/ALT 26 U/L (10-49); TOTAL PROTEIN 7.3 gm/dL (6.0-8.0)
[2022-10-22 19:07] LABS: BILIRUBIN Negative (Negative); BLOOD Negative (Negative); CLARITY Cloudy (Clear); COLOR Dark Yellow (Yellow); GLUCOSE 3+ (Negative); KETONE Trace (Negative); LEUKO ESTERASE Negative (Negative); NITRITE Negative (Negative); SPECIFIC GRAVITY >= 1.030 (1.001-1.030)
[2022-10-22 19:25] LABS: BACTERIA 2+; EPITHELIAL CELLS TNTC
[2022-10-22 19:26] LABS: MUCOUS TRACE; YEAST TRACE
[2022-10-22] MEDS ORDERED: ONDANSETRON4 MG SL (19:46)
== END 2022-10-22 19:46 | disposition home or self-care (01) ==
LOC: ED 17:19
PROVIDERS: Emergency Medicine
DX: R11.2 Nausea with vomiting, unspecified (principal); R19.7 Diarrhea, unspecified; T50.905A Adverse effect of unspecified drugs, medicaments and biological substances, initial encounter; J45.909 Unspecified asthma, uncomplicated; F32.A Depression, unspecified; E11.65 Type 2 diabetes mellitus with hyperglycemia; Z79.4 Long term (current) use of insulin; F41.9 Anxiety disorder, unspecified; I10 Essential (primary) hypertension; Z88.0 Allergy status to penicillin; Z88.2 Allergy status to sulfonamides; Z88.8 Allergy status to other drugs, medicaments and biological substances; Z91.010 Allergy to peanuts; Z91.018 Allergy to other foods; Z90.49 Acquired absence of other specified parts of digestive tract; Z98.890 Other specified postprocedural states; Z87.891 Personal history of nicotine dependence; Z79.899 Other long term (current) drug therapy; Y92.89 Other specified places as the place of occurrence of the external cause

== ENCOUNTER 2023-03-06 21:33 | Emergency (ER) | payer OTHER ==
[~2023-03-06 21:33] MED LIST changes: +ONDANSETRON4 MG SL
[2023-03-06 21:57] VITALS: BP 168/95
[2023-03-07] MEDS ORDERED: OMNICEF300 MG PO (00:53)
== END 2023-03-07 00:54 | disposition home or self-care (01) ==
LOC: ED 21:33
DX: J02.8 Acute pharyngitis due to other specified organisms (principal); J45.909 Unspecified asthma, uncomplicated; F32.A Depression, unspecified; E11.9 Type 2 diabetes mellitus without complications; Z79.4 Long term (current) use of insulin; F41.9 Anxiety disorder, unspecified; I10 Essential (primary) hypertension; Z88.0 Allergy status to penicillin; Z88.2 Allergy status to sulfonamides; Z88.8 Allergy status to other drugs, medicaments and biological substances; Z91.018 Allergy to other foods; Z91.010 Allergy to peanuts; Z90.49 Acquired absence of other specified parts of digestive tract; Z98.890 Other specified postprocedural states; Z87.891 Personal history of nicotine dependence; Z20.822 Contact with and (suspected) exposure to COVID-19

== ENCOUNTER → 2023-05-24 | Outpatient (CLI) | payer OTHER ==
[~2023-05-24] MED LIST changes: +OMNICEF300 MG PO
== END | disposition home or self-care (01) ==
LOC: RESCLI 13:33
PROVIDERS: ATTEND Student in an Organized Health Care Education/Training Program
DX: E10.9 Type 1 diabetes mellitus without complications (principal); J45.909 Unspecified asthma, uncomplicated; E78.5 Hyperlipidemia, unspecified; M54.9 Dorsalgia, unspecified; F32.9 Major depressive disorder, single episode, unspecified; Z79.899 Other long term (current) drug therapy; Z82.49 Family history of ischemic heart disease and other diseases of the circulatory system; Z88.0 Allergy status to penicillin; Z88.8 Allergy status to other drugs, medicaments and biological substances; Z91.010 Allergy to peanuts

== ENCOUNTER 2023-08-29 18:13 | Emergency (ER) | payer OTHER ==
[~2023-08-29] VITALS: Wt 114.8 kg
[2023-08-29] MEDS ORDERED: SODIUM CHLORIDE 0.9% 1,000 ML IV ONE (18:25)
[2023-08-29] MEDS ORDERED: ACETAMINOPHEN 325 MG TAB PO ONE (18:35)
[2023-08-29] MEDS ORDERED: LYRICA75 M1 PO (18:47)
[2023-08-29] MEDS ORDERED: ATORVASTATIN CA10 M1 PO (18:48)
[2023-08-29] MEDS ORDERED: HUMALOG100 UNIT/2 SC (18:49)
[2023-08-29 18:51] LABS: BASO % 0.2 % (0.0-1.0); EOS # 0.2 10*3/uL (0.0-0.4); EOS % 2.3 % (1.0-4.0); HEMATOCRIT 42.1 % (37.0-47.0); LYMPH # 0.6 10*3/uL (1.3-4.4); LYMPH % 7.8 % (27.0-41.0); MEAN CELL VOLUME 80.2 fl (81.0-99.0); MEAN CORPUSCULAR HGB 25.7 pg (27.0-31.0); MEAN CORPUSCULAR HGB CONC 32.1 g/dl (33.0-37.0); MONO # 0.6 10*3/uL (0.1-1.0); NEUT # 6.8 10*3/uL (2.3-7.9); NEUT % 82.5 % (47.0-73.0); PLATELET COUNT AUTOMATED 193 10*3/uL (130-400); RED BLOOD COUNT 5.25 10*6/uL (4.10-5.10); RED CELL DISTRI WIDTH 13.5 % (0-14.5); WHITE BLOOD COUNT 8.2 10*3/uL (4.8-10.8)
[2023-08-29 19:14] LABS: ALKALINE PHOSPHATASE 80 U/L (46-116); BUN 11 mg/dl (9-23); CHLORIDE 104 mmol/L (98-107); CPK 197 U/L (34-171); POTASSIUM 3.9 mmol/L (3.4-5.1); SGPT/ALT 36 U/L (5-49)
[2023-08-29 19:34] LABS: BILIRUBIN Negative (Negative); BLOOD Negative (Negative); CLARITY Clear (Clear); COLOR Yellow (Yellow); GLUCOSE Negative (Negative); KETONE Trace (Negative); LEUKO ESTERASE Negative (Negative); NITRITE Negative (Negative); PH 6.5 (4.5-8.0)
[2023-08-29 19:39] LABS: WBC 0-2 wbc/hpf (0-5)
[2023-08-29] MEDS ORDERED: SODIUM CHLORIDE 0.9% 1,000 ML IV SCH (20:25)
[2023-08-30] MEDS ORDERED: ACETAMINOPHEN 325 MG TAB PO ONE ×2 (00:10→09:55)
[2023-08-30] MEDS ORDERED: HYDROmorphONE Hydrochloride 0.5 MG/0.5 ML SYRINGE IV ONE (02:10)
[2023-08-30] MEDS ORDERED: Ondansetron Hydrochloride 4 MG/2 ML VIAL IV ONE (07:45)
[2023-08-30 10:18] VITALS: BP 120/67
== END 2023-08-30 13:35 | disposition home or self-care (01) ==
LOC: ED 18:13
PROVIDERS: Nurse Practitioner
DX: U07.1 COVID-19 (principal); E10.9 Type 1 diabetes mellitus without complications; Z88.0 Allergy status to penicillin; Z88.2 Allergy status to sulfonamides; Z88.8 Allergy status to other drugs, medicaments and biological substances; Z79.899 Other long term (current) drug therapy; Z79.4 Long term (current) use of insulin; Z90.49 Acquired absence of other specified parts of digestive tract; Z98.890 Other specified postprocedural states; Z87.891 Personal history of nicotine dependence

== ENCOUNTER 2023-09-20 17:51 | Emergency (ER) | payer OTHER ==
[~2023-09-20] VITALS: Ht 167.6 cm; Wt 108.9 kg
[~2023-09-20 17:51] MED LIST changes: +ATORVASTATIN CA10 M1 PO; +HUMALOG100 UNIT/2 SC; +LYRICA75 M1 PO
[2023-09-20 19:14] LABS: BASO % 0.2 % (0.0-1.0); EOS # 0.1 10*3/uL (0.0-0.4); HEMATOCRIT 36.4 % (37.0-47.0); LYMPH # 1.7 10*3/uL (1.3-4.4); LYMPH % 18.7 % (27.0-41.0); MEAN CELL VOLUME 79.6 fl (81.0-99.0); MEAN CORPUSCULAR HGB 25.8 pg (27.0-31.0); MEAN CORPUSCULAR HGB CONC 32.4 g/dl (33.0-37.0); MEAN PLATELET VOLUME 10.5 fl (9.6-12.3); MONO # 0.7 10*3/uL (0.1-1.0); NEUT # 6.6 10*3/uL (2.3-7.9); NEUT % 71.9 % (47.0-73.0); PLATELET COUNT AUTOMATED 224 10*3/uL (130-400); RED BLOOD COUNT 4.57 10*6/uL (4.10-5.10); RED CELL DISTRI WIDTH 13.7 % (0-14.5); WHITE BLOOD COUNT 9.2 10*3/uL (4.8-10.8)
[2023-09-20 19:35] LABS: ALKALINE PHOSPHATASE 76 U/L (46-116); BUN 8 mg/dl (9-23); CHLORIDE 109 mmol/L (98-107); POTASSIUM 3.4 mmol/L (3.4-5.1); SGPT/ALT 16 U/L (5-49); TOTAL PROTEIN 7.5 gm/dL (6.0-8.0)
[2023-09-20 19:36] LABS: B-hCG (QUALITATIVE) NEGATIVE (NEGATIVE)
[2023-09-21 02:30] VITALS: BP 127/78
[2023-09-22] MEDS ORDERED: NORTRIPTYLINE H25 M1 PO (19:52)
== END 2023-09-21 03:58 | disposition short-term general hospital (02) ==
LOC: ED 17:51
PROVIDERS: Emergency Medicine
DX: G83.4 Cauda equina syndrome (principal); R55 Syncope and collapse; R32 Unspecified urinary incontinence; Z88.0 Allergy status to penicillin; Z88.8 Allergy status to other drugs, medicaments and biological substances; Z88.2 Allergy status to sulfonamides; Z79.899 Other long term (current) drug therapy; Z79.4 Long term (current) use of insulin; Z90.49 Acquired absence of other specified parts of digestive tract; Z98.890 Other specified postprocedural states; Z87.891 Personal history of nicotine dependence

== ENCOUNTER 2023-09-22 18:05 | Emergency (ER) | payer OTHER ==
[2023-09-22 18:33] VITALS: BP 158/105
[2023-09-22 19:03] LABS: BASO % 0.3 % (0.0-1.0); EOS # 0.1 10*3/uL (0.0-0.4); EOS % 0.4 % (1.0-4.0); LYMPH # 2.3 10*3/uL (1.3-4.4); LYMPH % 20.2 % (27.0-41.0); MEAN CELL VOLUME 79.4 fl (81.0-99.0); MEAN CORPUSCULAR HGB 25.9 pg (27.0-31.0); MEAN CORPUSCULAR HGB CONC 32.6 g/dl (33.0-37.0); MEAN PLATELET VOLUME 10.4 fl (9.6-12.3); MONO # 0.7 10*3/uL (0.1-1.0); MONO % 6.2 % (3.0-9.0); NEUT # 8.3 10*3/uL (2.3-7.9); NEUT % 72.6 % (47.0-73.0); PLATELET COUNT AUTOMATED 236 10*3/uL (130-400); RED BLOOD COUNT 4.91 10*6/uL (4.10-5.10); RED CELL DISTRI WIDTH 13.9 % (0-14.5); WHITE BLOOD COUNT 11.5 10*3/uL (4.8-10.8)
[2023-09-22 19:25] LABS: ALKALINE PHOSPHATASE 85 U/L (46-116); BUN 7 mg/dl (9-23); CHLORIDE 108 mmol/L (98-107); POTASSIUM 3.3 mmol/L (3.4-5.1); SGPT/ALT 14 U/L (5-49); TOTAL PROTEIN 8.1 gm/dL (6.0-8.0)
[2023-09-22 19:26] LABS: ETHYL ALCOHOL < 3.0 mg/dl (<3)
[2023-09-22 19:28] LABS: BILIRUBIN Negative (Negative); BLOOD Negative (Negative); CLARITY Clear (Clear); COLOR Yellow (Yellow); GLUCOSE Negative (Negative); KETONE Negative (Negative); LEUKO ESTERASE Negative (Negative); NITRITE Negative (Negative); PH 5.5 (4.5-8.0)
[2023-09-22 19:35] LABS: URINE AMPHETAMINES Negative (1000ng/ml); URINE BARBITURATES Negative (200ng/ml); URINE BENZODIAZEPINES Negative (200ng/ml); URINE CANNABINOIDS (THC) Negative (50ng/ml); URINE COCAINE Negative (300ng/ml); URINE METHADONE Negative (300ng/ml); URINE OPIATES Negative (300ng/ml); URINE PHENCYCLIDINE Negative (25ng/ml)
[2023-09-22 19:38] LABS: BACTERIA 1+
[2023-09-22] MEDS ORDERED: POTASSIUM CHLORIDE 20 MEQ TAB PO ONE (19:45)
[2023-09-22] MEDS ORDERED: NORTRIPTYLINE H25 M1 PO (19:52)
== END 2023-09-22 21:30 | disposition home or self-care (01) ==
LOC: ED 18:05
PROVIDERS: Emergency Medicine
DX: F43.23 Adjustment disorder with mixed anxiety and depressed mood (principal); J45.909 Unspecified asthma, uncomplicated; F41.9 Anxiety disorder, unspecified; I10 Essential (primary) hypertension; E11.40 Type 2 diabetes mellitus with diabetic neuropathy, unspecified; Z88.0 Allergy status to penicillin; Z88.2 Allergy status to sulfonamides; Z88.8 Allergy status to other drugs, medicaments and biological substances; Z91.010 Allergy to peanuts; Z91.018 Allergy to other foods; Z90.49 Acquired absence of other specified parts of digestive tract; Z98.890 Other specified postprocedural states; Z87.891 Personal history of nicotine dependence

== ENCOUNTER 2023-12-05 19:33 | Emergency (ER) | payer OTHER ==
[~2023-12-05] VITALS: Ht 167.6 cm; Wt 113.4 kg
[~2023-12-05 19:33] MED LIST changes: +NORTRIPTYLINE H25 M1 PO
[2023-12-05] MEDS ORDERED: Labetalol Hydrochloride 20 MG/4 ML SYR IV ONE (19:45)
[2023-12-05] MEDS ORDERED: LORazepam 2 MG/ML VIAL IV ONE (20:10)
[2023-12-05 20:20] LABS: BASO % 0.3 % (0.0-1.0); EOS # 0.9 10*3/uL (0.0-0.4); EOS % 10.3 % (1.0-4.0); HEMATOCRIT 38.2 % (37.0-47.0); LYMPH # 2.1 10*3/uL (1.3-4.4); LYMPH % 23.5 % (27.0-41.0); MEAN CELL VOLUME 80.9 fl (81.0-99.0); MEAN CORPUSCULAR HGB 26.5 pg (27.0-31.0); MEAN CORPUSCULAR HGB CONC 32.7 g/dl (33.0-37.0); MEAN PLATELET VOLUME 10.1 fl (9.6-12.3); MONO # 0.7 10*3/uL (0.1-1.0); MONO % 7.9 % (3.0-9.0); NEUT % 57.8 % (47.0-73.0); PLATELET COUNT AUTOMATED 209 10*3/uL (130-400); RED BLOOD COUNT 4.72 10*6/uL (4.10-5.10); RED CELL DISTRI WIDTH 13.5 % (0-14.5); WHITE BLOOD COUNT 8.7 10*3/uL (4.8-10.8)
[2023-12-05 20:31] LABS: ACT PARTIAL THROMBO TIME 28.2 SECONDS (20.0-32.1)
[2023-12-05 20:43] LABS: ALKALINE PHOSPHATASE 84 U/L (46-116); BUN 7 mg/dl (9-23); CHLORIDE 106 mmol/L (98-107); POTASSIUM 3.4 mmol/L (3.4-5.1); SGPT/ALT 17 U/L (5-49); TOTAL PROTEIN 7.4 gm/dL (6.0-8.0)
[2023-12-05 21:20] VITALS: BP 108/66
== END 2023-12-05 21:50 | disposition home or self-care (01) ==
LOC: ED 19:33
PROVIDERS: Nurse Practitioner
DX: I16.0 Hypertensive urgency (principal); R07.89 Other chest pain; E10.9 Type 1 diabetes mellitus without complications; Z88.0 Allergy status to penicillin; Z88.8 Allergy status to other drugs, medicaments and biological substances; Z88.2 Allergy status to sulfonamides; Z79.899 Other long term (current) drug therapy; Z79.4 Long term (current) use of insulin; Z90.49 Acquired absence of other specified parts of digestive tract; Z98.890 Other specified postprocedural states; Z87.891 Personal history of nicotine dependence

== ENCOUNTER 2024-03-31 10:21 | Emergency (ER) | payer OTHER ==
[~2024-03-31] VITALS: Ht 167.6 cm; Wt 109.8 kg
[2024-03-31 10:31] VITALS: BP 133/69
[2024-03-31] MEDS ORDERED: Acetaminophen/Oxycodone 5 MG/325 MG TABLET PO ONE (10:35)
[2024-03-31] MEDS ORDERED: MELOXICAM15 MG PO (10:41)
[2024-03-31] MEDS ORDERED: CYCLOBENZAPRINE10 MG PO (10:41)
== END 2024-03-31 11:32 | disposition home or self-care (01) ==
LOC: ED 10:21
DX: S46.912A Strain of unspecified muscle, fascia and tendon at shoulder and upper arm level, left arm, initial encounter (principal); M54.2 Cervicalgia; J45.909 Unspecified asthma, uncomplicated; F41.9 Anxiety disorder, unspecified; I10 Essential (primary) hypertension; F31.9 Bipolar disorder, unspecified; E11.40 Type 2 diabetes mellitus with diabetic neuropathy, unspecified; Z79.4 Long term (current) use of insulin; Z88.0 Allergy status to penicillin; Z88.2 Allergy status to sulfonamides; Z88.8 Allergy status to other drugs, medicaments and biological substances; Z91.010 Allergy to peanuts; Z91.018 Allergy to other foods; Z90.49 Acquired absence of other specified parts of digestive tract; Z98.890 Other specified postprocedural states; Z87.891 Personal history of nicotine dependence; W18.2XXA Fall in (into) shower or empty bathtub, initial encounter; Y93.89 Activity, other specified; Y92.89 Other specified places as the place of occurrence of the external cause; Y99.8 Other external cause status

== ENCOUNTER 2024-11-25 15:36 | Emergency (ER) | payer OTHER ==
[~2024-11-25] VITALS: Ht 167.6 cm; Wt 111.1 kg
[2024-11-25 15:52] VITALS: BP 133/73
[2024-11-25 17:03] LABS: BASO # 0.0 10*3/uL (0.0-0.1); BASO % 0.3 % (0.0-1.0); EOS # 0.1 10*3/uL (0.0-0.4); EOS % 1.8 % (1.0-4.0); MEAN CELL VOLUME 84.4 fl (81.0-99.0); MEAN CORPUSCULAR HGB 26.5 pg (27.0-31.0); MEAN PLATELET VOLUME 10.4 fl (9.6-12.3); MONO # 0.5 10*3/uL (0.1-1.0); MONO % 7.0 % (3.0-9.0); NEUT # 5.2 10*3/uL (2.3-7.9); NEUT % 68.9 % (47.0-73.0); NUCLEATED RED BLOOD CELL 0.0 % (0.0-0.0); NUCLEATED RED BLOOD CELL 0.0 10*3/uL (0.0-0.0); PLATELET COUNT AUTOMATED 259 10*3/uL (130-400); RED CELL DISTRI WIDTH 12.5 % (0-14.5)
[2024-11-25 17:16] LABS: BILIRUBIN Negative (Negative); BLOOD 2+ (Negative); CLARITY Cloudy (Clear); COLOR Yellow (Yellow); KETONE 1+ (Negative); LEUKO ESTERASE 1+ (Negative); NITRITE Negative (Negative); PH 5.5 (4.5-8.0); SPECIFIC GRAVITY 1.025 (1.001-1.030); UROBILINOGEN 1.0 E.U./dl (0.0-1.0)
[2024-11-25 17:25] LABS: BACTERIA 1+; EPITHELIAL CELLS 21-30; MUCOUS 1+
[2024-11-25 17:26] LABS: URINE AMPHETAMINES Negative (1000ng/ml); URINE BARBITURATES Negative (200ng/ml); URINE BENZODIAZEPINES Negative (200ng/ml); URINE CANNABINOIDS (THC) Negative (50ng/ml); URINE COCAINE Negative (300ng/ml); URINE METHADONE Negative (300ng/ml); URINE OPIATES Positive (300ng/ml); URINE PHENCYCLIDINE Negative (25ng/ml)
[2024-11-25 17:31] LABS: BUN 9 mg/dl (9-23); ETHYL ALCOHOL < 3.0 mg/dl (<3)
[2024-11-25] MEDS ORDERED: IOHEXOL 300 MG/ML 100 ML VIAL IV ONE (17:45)
[2024-11-25] MEDS ORDERED: IOHEXOL 300 MG/ML 100 ML VIAL ONE (18:08)
[2024-11-25] MEDS ORDERED: Nitrofurantoin Monohydrate/N 100 MG CAP PO ONE (20:10)
== END 2024-11-25 20:11 | disposition home or self-care (01) ==
LOC: ED 15:36
PROVIDERS: Internal Medicine
DX: N39.0 Urinary tract infection, site not specified (principal); Z88.0 Allergy status to penicillin; Z88.8 Allergy status to other drugs, medicaments and biological substances; Z88.1 Allergy status to other antibiotic agents; Z98.890 Other specified postprocedural states; Z90.49 Acquired absence of other specified parts of digestive tract; Z87.891 Personal history of nicotine dependence

== ENCOUNTER 2025-02-27 19:53 | Emergency (ER) | payer OTHER ==
[~2025-02-27] VITALS: Ht 167.6 cm; Wt 111.1 kg
[2025-02-27 20:12] VITALS: BP 161/92
[2025-02-28] MEDS ORDERED: CYCLOBENZAPRINE10 MG PO (00:15)
[2025-02-28] MEDS ORDERED: Cyclobenzaprine Hydrochlorid 10 MG TAB PO ONE (00:20)
== END 2025-02-28 00:33 | disposition home or self-care (01) ==
LOC: ED 19:53
DX: S16.1XXA Strain of muscle, fascia and tendon at neck level, initial encounter (principal); J45.909 Unspecified asthma, uncomplicated; F41.9 Anxiety disorder, unspecified; I10 Essential (primary) hypertension; F31.9 Bipolar disorder, unspecified; E11.40 Type 2 diabetes mellitus with diabetic neuropathy, unspecified; Z87.891 Personal history of nicotine dependence; Z98.890 Other specified postprocedural states; Z90.49 Acquired absence of other specified parts of digestive tract; Z88.0 Allergy status to penicillin; Z88.1 Allergy status to other antibiotic agents; Z88.8 Allergy status to other drugs, medicaments and biological substances; V49.60XA Unspecified car occupant injured in collision with unspecified motor vehicles in traffic accident, initial encounter; Y93.89 Activity, other specified; Y92.410 Unspecified street and highway as the place of occurrence of the external cause; Y99.8 Other external cause status